=== PATIENT | male | born 1960 | race Caucasian/White ===

== ENCOUNTER 2021-02-15 16:21 | Observation (INO) | payer OTHER, SELFPAY ==
[2021-02-15 16:33] VITALS: BP 164/93; PULSE 80; RESP 16; TEMP 36.8; O2SAT 98; BMI 28.6
--- NOTE | 2021-02-15 16:53 | CTR_ITS ---
PROCEDURE INFORMATION: Exam: CT Head Without Contrast Exam date and time: 02/15/2021 4:53 PM Age: 60 years old Clinical indication: Pain; Headache; Additional info: Symptoms of acute stroke TECHNIQUE: Imaging protocol: Computed tomography of the head without contrast. Radiation optimization: All CT scans at this facility use at least one of these dose optimization techniques: automated exposure control; mA and/or kV adjustment per patient size (includes targeted exams where dose is matched to clinical indication); or iterative reconstruction. COMPARISON: No relevant prior studies available. RADIATION DOSE METRICS: Total DLP (mGy-cm): 924.27 FINDINGS: Brain: No hemorrhage. Ill-defined area of hypoattenuation in the left occipital lobe suggestive of an age-indeterminate infarct. Mild diffuse cerebral atrophy. No mass effect. Cerebral ventricles: No ventriculomegaly. Paranasal sinuses: Visualized sinuses are unremarkable. No fluid levels. Mastoid air cells: Visualized mastoid air cells are well aerated. Bones/joints: Unremarkable. No acute fracture. Soft tissues: Unremarkable. CT/CT head wo con* [id number] IMPRESSION: Ill-defined area of hypoattenuation in the left occipital lobe suggestive of an age-indeterminate infarct. Would recommend further evaluation with MRI. Radiation Dose CTDIVOL = (mGy): DLP = 924.27 (mGy-cm)
--- NOTE | 2021-02-15 16:53 | ECG_ITS ---
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 Measurements Intervals [place] Rate: 81 P: 47 LA: 180 QRS: 27 QRSD: 90 T: 34 QT: 344 QTc: 402 Interpretive Statements SINUS RHYTHM No previous ECG available for comparison Electronically Signed On 02-15-2021 23:23:41 CDT by Fred Vaca M.D. [id number]
--- NOTE | 2021-02-15 16:53 | XRR_ITS ---
PROCEDURE INFORMATION: Exam: XR Chest Exam date and time: 02/15/2021 4:53 PM Age: 60 years old Clinical indication: Other: Hypertension; Additional info: Elevated BP TECHNIQUE: Imaging protocol: XR of the chest. Views: 1 view. COMPARISON: No relevant prior studies available. FINDINGS: Lungs: Unremarkable. No consolidation. Pleural spaces: Unremarkable. No pleural effusion. No pneumothorax. Heart/Mediastinum: Unremarkable. No cardiomegaly. Bones/joints: Unremarkable. XR/XR chest 1V portable [id number] IMPRESSION: No acute findings. Radiation Dose CTDIVOL = (mGy): DLP = (mGy-cm)
[2021-02-15 17:01] LABS: Glucose Point of Care 129 mg/dL (70-110)
--- NOTE | 2021-02-15 17:06 | W.ED.NEUROSD ---
HPI - Neuro Symptoms/Deficit General: Chief Complaint: ER Hold Stated Complaint: htn:r side numbness/tingling Time Seen by Provider: 02/15/21 16:53 History of Present Illness: HPI Narrative: 60-year-old male presents emergency room with complaint of getting dizzy. He was lightheaded and dizzy felt like he was going to pass out and laid down on the ground for about 45 minutes. This was around 130. He did not ever lose consciousness. There was no chest pain. He states he had some left arm and leg numbness that is pretty much resolved by the time I seen the patient. He is not previously had episodes like this patient is not diabetic he has no history of heart disease or previous strokes. Onset (ago): hour(s) Last Observed Normal: 13:30 Timing confirmed by: spouse Location: speech, left arm and left leg Severity: mild Quality: weak and numb Relieving factors: time Exacerbating factors: none Context: sudden onset On Anticoagulants: No Associated symptoms: Deny chest pain, cough, diaphoresis, fevers/chills, headache(s), anorexia, malaise, nausea, seizures, short of breath, syncope, tingling, vertigo, vomiting or weakness Treatments Prior to Arrival: none Review of Systems Const: Denies: malaise or diaphoresis ENMT: Denies: throat pain, ear or mastoid pain, nasal discharge or nasal congestion Card: Denies: chest pain or syncope Resp: Denies: dyspnea, productive cough or non-productive cough GI: Denies: nausea or vomiting : Denies: flank pain, dysuria, urinary frequency or urinary urgency Skin/Breast: Denies: rash or pruritus Neuro: Denies: headache(s) or vertigo PFSH ED PFSH: Social History Smoking and tobacco status: current every day smoker (only 2 a day) NIH stroke score NIHSS: Level Of Consciousness - 1a: 0 Level Of Consciousness Questions - 1b: Both Correct Level Of Consciousness Commands - 1c: Both Correct Best Gaze - 2: Normal Visual Iriwn - 3: No Visual Loss Facial Palsy - 4: Normal Motor Arm Right - 5: No Drift Motor Arm Left - 5: No Drift Motor Leg Right - 6: No Drift Motor Leg Left - 6: No Drift Limb Ataxia - 7: Absent Sensory - 8: Normal Best Language - 9: No Aphasia Dysarthia - 10: Normal Extinction And Inattention - 11: 0 Score: Total Score: 0 Physical Exam Const: COMMON NORMALS: no acute distress GENERAL APPEARANCE: cooperative and comfortable ORIENTATION/CONSCIOUSNESS: Yes awake, Yes oriented to person, Yes oriented to place and Yes oriented to time HENMT: COMMON NORMALS: normocephalic, atraumatic and hearing grossly normal bilaterally HEAD & SCALP: normocephalic and atraumatic Neck/C-Spine: COMMON NORMALS: no JVD Resp: COMMON NORMALS: normal respiratory effort, No retractions, No use of accessory muscles and clear to auscultation bilaterally AUSCULTATION: clear to auscultation bilaterally Cardio: COMMON NORMALS: no JVD, regular rate, regular rhythm and No murmurs present (Cardio) RATE: regular rate RHYTHM: regular rhythm GI: COMMON NORMALS: Soft to palpation and No hepatosplenomegaly present AUSCULTATION: Yes normoactive bowel sounds PALPATION: Yes Soft to palpation, No Tenderness to palpation present (GI), No Guarding due to palpation present (GI) and Yes No hepatosplenomegaly present Extremity: COMMON NORMALS: normal to inspection, capillary refill normal, no clubbing, cyanosis or edema, no calf tenderness and no pedal edema Neuro: SENSORIUM/ORIENTATION: Yes oriented to person, Yes oriented to place and Yes oriented to time Skin: COMMON NORMALS: no rashes or lesions noted GENERAL SKIN EXAM: no rashes or lesions noted Course Vital Signs: Vital signs: Vital Signs Temperature 98.9 F 02/16/21 18:03 Pulse Rate 76 02/16/21 18:03 Respiratory Rate 20 H 02/16/21 18:03 Blood Pressure 148/92 02/16/21 18:03 Pulse Oximetry 98 02/16/21 18:03 MDM - Neuro Symptoms/Deficit MDM Narrative: Medical decision making narrative: With the patient has had a stroke. He is outside the window for TPA. Has been having various episodes. Discussed with hospitalist with Dr. Walden will admit for risk factor evaluation further work-up. Lab Data: Labs: Lab Results 02/15/21 02/15/21 02/15/21 16:51 16:57 16:57 WBC 12.3 10^3/uL H 10 ^3/uL (4.0-10.0) RBC 5.67 10^6/uL H 10 ^6/uL (4.1-5.3) Hgb 17.0 g/dL H g/dL (11.7-16.6) Hct 52.8 % H % (42.0-52.0) MCV 93.1 fl fl (80-94) MCH 30.0 pg pg (28.0-34.0) MCHC 32.2 g/dL g/dL (30.0-36.0) RDW 22.2 % H % (12.1-15.1) Plt Count 214 10^3/cmm 10^3 /cmm (130-400) MPV 10.5 fL H fL (7.4-10.4) Neut % (Auto) 74.0 % % Lymph % (Auto) 19.0 % % [place] % (Auto) 4.6 % % Eos % (Auto) 1.1 % % Baso % (Auto) 0.9 % % Neut # (Auto) 9.14 10^3/uL H 10 ^3/uL (1.8-7.7) Lymph # (Auto) 2.3 10^3/uL 10^3/ uL (0.8-4.8) [place] # (Auto) 0.6 10^3/uL 10^3/ uL (0.2-0.9) Eos # (Auto) 0.1 10^3/uL 10^3/ uL (0.0-0.8) Baso # (Auto) 0.1 10^3/uL 10^3/ uL (0.0-0.1) Nucleated RBC % (a uto) 0 % % Nucleated RBCs # 0.0 /100WBC /100W BC PT Cancelled INR Cancelled APTT Cancelled Sodium Potassium Chloride Carbon Dioxide Anion Gap BUN Creatinine GFR Calculation Glucose POC Glucose 129 mg/dL H mg/dL (70-110) Calculated Osmolal ity Calcium Total Bilirubin AST ALT Alkaline Phosphata se Total Protein Albumin Globulin Urine Color Urine Appearance Urine pH Ur Specific Gravit y Urine Protein Urine Glucose (UA) Urine Ketones Urine Blood Urine Nitrate Urine Bilirubin Urine Urobilinogen Ur Leukocyte Shantal ase Urine Opiates Scre en Ur Barbiturates Sc reen Ur Phencyclidine S crn Ur Amphetamines Sc reen U Benzodiazepines Scrn Urine Cocaine Scre en U Marijuana (THC) Screen 02/15/21 02/15/21 02/15/21 16:57 17:25 17:25 WBC RBC Hgb Hct MCV MCH MCHC RDW Plt Count MPV Neut % (Auto) Lymph % (Auto) [place] % (Auto) Eos % (Auto) Baso % (Auto) Neut # (Auto) Lymph # (Auto) [place] # (Auto) Eos # (Auto) Baso # (Auto) Nucleated RBC % (a uto) Nucleated RBCs # PT INR APTT Sodium Cancelled Potassium Cancelled Chloride Cancelled Carbon Dioxide Cancelled Anion Gap Cancelled BUN Cancelled Creatinine Cancelled GFR Calculation Cancelled Glucose Cancelled POC Glucose Calculated Osmolal ity Cancelled Calcium Cancelled Total Bilirubin Cancelled AST Cancelled ALT Cancelled Alkaline Phosphata se Cancelled Total Protein Cancelled Albumin Cancelled Globulin Cancelled Urine Color Straw (Yellow) Urine Appearance Clear (CLEAR) Urine pH 5 (5-7) Ur Specific Gravit y 1.010 (1.005-1.030) Urine Protein Neg (Negative) Urine Glucose (UA) Trace H (Normal) Urine Ketones 1+ H (Negative) Urine Blood Neg (Negative) Urine Nitrate Negative (Negative) Urine Bilirubin Neg (Negative) Urine Urobilinogen Norm mg/dL mg/dL (Negative) Ur Leukocyte Shantal ase Negative (Negative) Urine Opiates Scre en Negative ng/mL ng /mL (Negative) Ur Barbiturates Sc reen Negative ng/mL ng /mL (Negative) Ur Phencyclidine S crn Negative ng/mL ng /mL (Negative) Ur Amphetamines Sc reen Negative ng/mL ng /mL (Negative) U Benzodiazepines Scrn Negative ng/mL ng /mL (Negative) Urine Cocaine Scre en Negative ng/mL ng /mL (Negative) U Marijuana (THC) Screen Negative ng/mL ng /mL (Negative) Discharge Plan Discharge Patient Disposition: Admitted As Inpatient Admit Provider: Josefina Mendez Clinical Impression: 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
[2021-02-15 17:08] LABS: Basophils # 0.1 10^3/uL (0.0-0.1); Basophils % 0.9 %; Eosinophils # 0.1 10^3/uL (0.0-0.8); Eosinophils % 1.1 %; Hematocrit 52.8 % (42.0-52.0); Lymphocytes # 2.3 10^3/uL (0.8-4.8); Mean Corpuscular HGB Conc 32.2 g/dL (30.0-36.0); Mean Corpuscular Volume 93.1 fl (80-94); Mean Platelet Volume 10.5 fL (7.4-10.4); Monocytes # 0.6 10^3/uL (0.2-0.9); Monocytes % 4.6 %; Neutrophils # 9.14 10^3/uL (1.8-7.7); Nucleated Red Blood Cells % 0 %; Platelet Count 214 10^3/cmm (130-400); Red Blood Count 5.67 10^6/uL (4.1-5.3); Red Cell Distribution Width 22.2 % (12.1-15.1); White Blood Count 12.3 10^3/uL (4.0-10.0)
[2021-02-15 17:37] LABS: Add Urine Microscopic? NO; Charge for UA Resulting for Rev
[2021-02-15 17:40] LABS: Bilirubin Urine Neg (Negative); Blood Urine Neg (Negative); Glucose Urine UA Trace (Normal); Ketones Urine 1+ (Negative); Leukocyte Esterase Urine Negative (Negative); Nitrate Urine Negative (Negative); Protein Urine Neg (Negative); Urine Appearance Clear (CLEAR); Urine Color Straw (Yellow); Urobilinogen Urine Norm (Negative); pH Urine 5 (5-7)
[2021-02-15 17:46] VITALS: BP 129/83; PULSE 89; RESP 18; O2SAT 95
--- NOTE | 2021-02-15 17:46 | PC.PHAR ---
pt states he takes care of his own medications-pt states he takes 99mg of otc kcl pt states he takes 5 tabs five times a day-pt states he takes some kind of diabetic pill once a day and a testosterone injection once a week called [facility] [phone] they are closed to verify what medication name and mg is-pt states the metoprolol tartrate 50mg bid was dced ext med history shows last filled on 01/25/21 30d/s-
[2021-02-15 18:03] LABS: Amphetamines Screen Urine Negative (Negative); Barbiturates Screen Urine Negative (Negative); Benzodiazepines Screen Urine Negative (Negative); Cocaine Screen Urine Negative (Negative); Opiate Screen Urine Negative (Negative); PCP Screen Urine Negative (Negative); THC Screen Urine Negative (Negative)
--- NOTE | 2021-02-15 19:06 | PM.HP ---
Providers/Chief Complaint Chief Complaint: htn:r side numbness/tingling History of Present Illness Nithin Shin is a 60 year old male with past medical history of hypertension and diabetes mellitus presented to the ER today by his for complaint of right-sided weakness. He stated he was lightheaded dizzy at first and he had to lay down for about 45 minutes on his front porch. He called his when she got there patient was foggy and was having right-sided numbness. He did not lose his speech. He was disoriented and just felt something did not feel right. He also said that he has had these type of episodes in the recent few weeks about 2 or 3 times and today was the third time. He denies any other symptoms. Denies any chest pain, shortness of breath, abdominal pain but does endorse a little bit of heartburn at times. He sees eye doctor at [facility] in [facility]. He has been placed on lisinopril 20 mg daily and amlodipine 10 mg daily for blood pressure. Him and his state that recently blood pressure has been an issue but at his last visit he was told that it is better but not exactly where it needs to be. He has not had a stroke before. ED course: Blood pressure on arrival 164/93, respirate 16, pulse rate 80, temperature 98.2, pulse ox 98%. Patient's NIH was 0 when seen by ER physician. He was outside the window for TPA therefore it was not given. CT head was performed which showed an indeterminate age infarct in the left occipital lobe MRI recommended for further work-up. Review of Systems General: Reports: 10 or more systems reviewed and unremarkable except in HPI and below Medications/Allergies Home Medications Medication Instructions Recorded Confirmed Last Taken Type Diabetic Pill 1 tab PO DAILY 02/15/21 02/15/21 Unknown History Testosterone Injection 1 ml INJECTION Q7D 02/15/21 02/15/21 Unknown History Vitamin B-1 1 tab PO DAILY 02/15/21 02/15/21 Unknown History amlodipine 10 mg PO BEDTIME 02/15/21 02/15/21 02/14/21 History anastrozole 1 mg PO Q7D 02/15/21 02/15/21 02/11/21 History aspirin [Aspir-81] 324 mg PO ONCE 02/15/21 02/15/21 02/15/21 14:30 History ibuprofen 600 mg PO Q4H PRN 02/15/21 02/15/21 02/15/21 History lisinopril 20 mg PO DAILY 02/15/21 02/15/21 Unknown History magnesium 1 tab PO DAILY 02/15/21 02/15/21 Unknown History potassium gluconate 495 mg PO .FIVE TIMES A DAY 02/15/21 02/15/21 Unknown History sildenafil (pulm.hypertension) 100 mg PO PRN PRN 02/15/21 02/15/21 Unknown History vitamin B complex 1 tab PO DAILY 02/15/21 02/15/21 Unknown History Allergies Allergy/AdvReac Type Severity Reaction Status Date / Time No Known Allergies Allergy Verified 02/15/21 16:42 Vitals/I&O/Wt Last Vital Signs Temp 98.2 F 02/15/21 16:33 Pulse 89 02/15/21 17:46 Resp 18 02/15/21 17:46 BP 129/83 02/15/21 17:46 Pulse Ox 95 02/15/21 17:46 Weight last 48 hrs Weight 98.43 kg Physical Exam Narrative: EXAM NARRATIVE: General: Alert oriented x3, patient seen laying in bed with present at bedside. HEENT: Normocephalic, atraumatic, EOMI, breathing room air Cardio: Regular rate rhythm, normal S1-S2, no murmurs rubs gallops, Respiratory: Good bilateral air entry, no wheezes no rhonchi appreciated. Very mild crackles at the right base. GI: Abdomen soft, nontender, nondistended, bowel sounds + Behavior: Appropriate and cooperative Extremities: no edema, no cyanosis Neuro: Cranial nerve II to XII intact, right upper quadrantanopia present, no word finding difficulty, no slurred speech, speech clear, strength 5 out of 5 upper and lower extremities, sensation intact upper and lower extremities. Otherwise unremarkable neuro exam except the right upper quadrantanopsia. Data : 02/15/21 16:57 02/15/21 16:57 A&P Assessment and plan (1) Stroke: Status: Acute (2) HTN (hypertension): Status: Acute (3) Diabetes: Status: Acute (4) Nicotine dependence: Status: Acute Additional A&P Information #Left occipital lobe stroke #Hypertension -Patient symptoms have resolved by the time he was seen by ER physician today. He was outside of window for TPA and therefore not given. He has been having these episodes for the last few weeks. Case was discussed with Dr. Walden who recommended a CT angio head and neck along with echo and an MRI brain with contrast. She also recommended to start patient on aspirin Plavix and atorvastatin. Will order MRI brain with contrast We will do neuro checks every 4 hours Placed on cardiac telemetry Check lipid profile, hemoglobin A1c As per recommendations from Dr. Walden will start him on lisinopril 10 mg daily, amlodipine 5 mg daily (half of his home doses.) We will do swallow evaluation before initiating a diet #Diabetes mellitus -Placed on insulin sliding scale Fluids: Not indicated Electrolyte: Replete as needed Nutrition: N.p.o. for now until swallow evaluation then will start a cardiac diet Activity: As tolerated DVT prophylaxis: Lovenox. Attestations Medical Necessity Statement*: Anticipate discharge in less than 48 hours. Time Spent in Patient Care: Greater than 35 minutes Coding Level of Care Code Acute [place] Operator for Hemal Cole Diagnoses Stroke I63.9 HTN (hypertension) I10 Diabetes E11.9 Nicotine dependence F17.200
[2021-02-15 19:43] LABS: INR 0.95 (0.8-1.2)
[2021-02-15 19:44] LABS: Partial Thromboplastin Time 27.2 SECONDS (23.9-36.7)
[2021-02-15 19:51] LABS: Alanine Aminotransferase 16 U/L (0-41); Albumin Level 4.7 g/dL (3.5-5.2); Alkaline Phosphatase 59 IU/L (40-130); Anion Gap 19.3 (5-19); Aspartate Amino Transferase 17 U/L (0-40); Blood Urea Nitrogen 14 mg/dL (6-20); Calcium 9.5 mg/dL (8.5-10.5); Carbon Dioxide 18 mmol/L (22-29); Chloride 105 mmol/L (98-107); Globulin 2.8 g/dL (1.3-4.6); Glomerular Filtration Rate 68.8 mL/min (90-130); Glucose 129 mg/dL (65-115); Osmolality Calculated 288 mOsm/kg (285-295); Potassium 4.3 mmol/L (3.5-5.1); Sodium 138 mmol/L (136-145); Total Bilirubin 0.6 mg/dL (0.15-1.2); Total Protein 7.5 g/dL (6.6-8.7)
[2021-02-15] MEDS: enoxaparin 40 mg/0.4 mL Syringe SUBCUT (21:31)
--- NOTE | 2021-02-15 21:39 | CTR_ITS ---
PROCEDURE INFORMATION: Exam: CT Angiography Head With Contrast, Arteriography Exam date and time: 02/15/2021 9:39 PM Age: 60 years old Clinical indication: Numbness and visual disturbance; Additional info: CVA TECHNIQUE: Imaging protocol: Computed tomography angiography of the head with contrast. Exam focused on the arteries. 3D rendering (Not supervised by radiologist): MIP and/or 3D reconstructed images were created by the technologist. Radiation optimization: All CT scans at this facility use at least one of these dose optimization techniques: automated exposure control; mA and/or kV adjustment per patient size (includes targeted exams where dose is matched to clinical indication); or iterative reconstruction. Contrast material: OMNI 350; Contrast volume: 95 ml; Contrast route: INTRAVENOUS (IV); COMPARISON: CT head wo con* [id number] 02/15/2021 5:00 PM RADIATION DOSE METRICS: Total DLP (mGy-cm): 2588.85 FINDINGS: ANTERIOR CIRCULATION: Right internal carotid artery: There is mild atherosclerotic disease in the cavernous portion of the right internal carotid artery without significant stenosis. Right middle cerebral artery: Unremarkable. No occlusion or significant stenosis. No aneurysm. Right anterior cerebral artery: Unremarkable. No occlusion or significant stenosis. No aneurysm. Left internal carotid artery: There is mild atherosclerotic disease in the cavernous portion of the left internal carotid artery without significant stenosis. Left middle cerebral artery: Unremarkable. No occlusion or significant stenosis. No aneurysm. Left anterior cerebral artery: Unremarkable. No occlusion or significant stenosis. No aneurysm. POSTERIOR CIRCULATION: Right vertebral artery: Unremarkable. No occlusion or significant stenosis. No aneurysm. Left vertebral artery: Unremarkable. No occlusion or significant stenosis. No aneurysm. Basilar artery: Unremarkable. No occlusion or significant stenosis. No aneurysm. Right posterior cerebral artery: origin of the right posterior cerebral artery. No occlusion or aneurysm. Left posterior cerebral artery: Unremarkable. No occlusion or significant stenosis. No aneurysm. Veins: Dural venous sinuses are patent. Brain: No definite mass, mass effect, or midline shift. Cerebral ventricles: No ventriculomegaly. Bones/joints: Unremarkable. No acute fracture. Soft tissues: Unremarkable. IMPRESSION: No arterial stenosis, occlusion or aneurysm. PROCEDURE INFORMATION: Exam: CT Angiography Neck With Contrast Exam date and time: 02/15/2021 9:39 PM Age: 60 years old Clinical indication: Numbness and visual disturbance; Additional info: CVA TECHNIQUE: Imaging protocol: Computed tomography angiography of the neck with contrast. 3D rendering (Not supervised by radiologist): MIP and/or 3D reconstructed images were created by the technologist. Radiation optimization: All CT scans at this facility use at least one of these dose optimization techniques: automated exposure control; mA and/or kV adjustment per patient size (includes targeted exams where dose is matched to clinical indication); or iterative reconstruction. Contrast material: OMNI 350; Contrast volume: 95 ml; Contrast route: INTRAVENOUS (IV); COMPARISON: CT head wo con* [id number] 02/15/2021 5:00 PM RADIATION DOSE METRICS: Total DLP (mGy-cm): 2588.85 FINDINGS: Right common carotid artery: No stenosis. No dissection or occlusion. Right internal carotid artery: There is mild atherosclerotic disease at the origin of the right internal carotid artery with less than 50% stenosis. Right external carotid artery: No occlusion or stenosis of the origin. Left common carotid artery: No stenosis. No dissection or occlusion. Left internal carotid artery: There is mild atherosclerotic disease at the origin of the left internal carotid artery with less than 50% stenosis. Left external carotid artery: There is 60 % stenosis at the origin of the left external carotid artery. Right vertebral artery: No stenosis. No dissection or occlusion. Left vertebral artery: No stenosis. No dissection or occlusion. Soft tissues: Soft tissues in the neck and thoracic inlet are unremarkable. Bones/joints: There is moderate degenerative disc disease in the cervical spine. Lungs: Lung apices are clear. CT/CT angio headneck* [id number] IMPRESSION: 1. No hemodynamically significant stenosis in the internal carotid or vertebral arteries. 2. 60% stenosis at the origin of the left external carotid artery. REFERENCES: NASCET CRITERIA. The degree of internal carotid artery stenosis is based on NASCET criteria. Normal is no stenosis. Mild is less than 50% stenosis. Moderate is 50-69% stenosis. Severe is 70% to 99% stenosis. Total occlusion is no detectable patent lumen. Radiation Dose CTDIVOL = (mGy): DLP = 2588.85~2588.85 (mGy-cm)
[2021-02-15] MEDS: iohexol 350 mg/mL 100 mL Btl IV (21:46)
[2021-02-16 03:00] VITALS: BP 98/74; PULSE 70; RESP 16; O2SAT 96
[2021-02-16 05:02] VITALS: BP 120/61; PULSE 65; RESP 16; O2SAT 97
[2021-02-16 05:09] LABS: Basophils # 0.1 10^3/uL (0.0-0.1); Basophils % 1.3 %; Eosinophils # 0.3 10^3/uL (0.0-0.8); Eosinophils % 3.9 %; Hematocrit 48.4 % (42.0-52.0); Hemoglobin 16.3 g/dL (11.7-16.6); Lymphocytes # 2.7 10^3/uL (0.8-4.8); Lymphocytes % 34.4 %; Mean Corpuscular HGB Conc 33.7 g/dL (30.0-36.0); Mean Corpuscular Hemoglobin 29.9 pg (28.0-34.0); Mean Corpuscular Volume 88.8 fl (80-94); Mean Platelet Volume 10.9 fL (7.4-10.4); Monocytes # 0.6 10^3/uL (0.2-0.9); Neutrophils # 4.02 10^3/uL (1.8-7.7); Neutrophils % 52.1 %; Nucleated Red Blood Cells % 0 %; Platelet Count 204 10^3/cmm (130-400); Red Blood Count 5.45 10^6/uL (4.1-5.3); Red Cell Distribution Width 13.4 % (12.1-15.1); White Blood Count 7.7 10^3/uL (4.0-10.0)
[2021-02-16 05:35] LABS: Cholesterol 143 mg/dL (0-200); HDL Cholesterol 42 mg/dL (60-100); LDL Cholesterol Calculated 76 mg/dL (50-129); LDL HDL Ratio 1.81 RATIO (0.00-3.22); Triglycerides 127 mg/dL (0-150)
[2021-02-16 05:45] LABS: Alanine Aminotransferase 12 U/L (0-41); Albumin Level 4.1 g/dL (3.5-5.2); Alkaline Phosphatase 50 IU/L (40-130); Anion Gap 15.5 (5-19); Aspartate Amino Transferase 13 U/L (0-40); Blood Urea Nitrogen 17 mg/dL (6-20); Carbon Dioxide 22 mmol/L (22-29); Chloride 106 mmol/L (98-107); Globulin 2.5 g/dL (1.3-4.6); Glomerular Filtration Rate 68.8 mL/min (90-130); Glucose 146 mg/dL (65-115); Magnesium 2.2 mg/dL (1.7-2.3); Osmolality Calculated 292 mOsm/kg (285-295); Potassium 4.5 mmol/L (3.5-5.1); Sodium 139 mmol/L (136-145); Thyroid Stimulating Hormone 0.86 uIU/mL (0.27-4.20); Total Bilirubin 0.4 mg/dL (0.15-1.2); Total Protein 6.6 g/dL (6.6-8.7)
--- NOTE | 2021-02-16 06:00 | USCV_ITS ---
Nithin Shin Age: 60 Gender: M : 1960 Exam Date: 02/16/2021 08:38 Ordering Phys: Michael Humphrey DO Technologist: Radha Samuels [place]am [place] [facility] [place]: CVA BP: / HR: 78 Rhythm: Sinus Technical Quality: Good MEASUREMENTS (Male / Female) Normal Values 2D ECHO LV Diastolic Diameter PLAX 4.0 cm 4.2 - 5.9 / 3.9 - 5.3 cm LV Systolic Diameter PLAX 2.2 cm IVS Diastolic Thickness 1.5 cm 0.6 - 1.0 / 0.6 - 0.9 cm IVS Systolic Thickness 1.9 cm LVPW Diastolic Thickness 1.3 cm 0.6 - 1.0 / 0.6 - 0.9 cm LVPW Systolic Thickness 1.9 cm LVOT Diameter 2.1 cm LV Ejection Fraction 2D Teich 76.3 % LV Ejection Fraction MOD 2C 73.6 % LV Ejection Fraction 2C AL 75.3 % LA Diameter 3.2 cm LA Width 3.0 cm LA Height 5.5 cm RA Width 2.8 cm RA Height 5.5 cm Aorta at Sinotubular Diameter 3.2 cm DOPPLER AV Peak Velocity 120.0 cm/s LVOT Peak Velocity 89.0 cm/s AV Area Cont Eq vti 2.9 cm squared AV Area Cont Eq pk 2.7 cm squared MV Peak Velocity 82.0 cm/s MV Area PHT 3.9 cm squared Mitral E to A Ratio 0.9 MV E' Velocity 35.5 cm/s Mitral E to MV E' Ratio 11.3 Mitral E to LV E' Lateral Ratio 8.8 Mitral E to LV E' Septal Ratio 15.6 TR Peak Velocity 47.0 cm/s TR Peak Gradient 0.9 mmHg Right Atrial Pressure 3.0 mmHg Pulmonary Artery Systolic Pressu 3.9 mmHg PV Peak Velocity 68.0 cm/s RV Acceleration Time 0.1 s RV Ejection Time 0.3 s RV AcT/ET 0.5 FINDINGS Left Ventricle Normal left ventricular size and systolic function, EF 74 %. No regional wall motion abnormalities. Mild left ventricular hypertrophy. Grade I/IV diastolic dysfunction (abnormal relaxation filling pattern), normal to mildly elevated filling pressures. Right Ventricle The right ventricle is normal in size and function. Right Atrium The right atrium is normal in size. Left Atrium The left atrium is normal in size. Mitral Valve Thickened mitral valve. Chordal VIOLETA is present Aortic Valve Structurally normal aortic valve without significant sclerosis or stenosis. There is no aortic regurgitation. Tricuspid Valve Trace tricuspid valve regurgitation. Pulmonic Valve Structurally normal pulmonic valve without significant stenosis. There is no pulmonic regurgitation. Pericardium Normal pericardium without effusion. Aorta Normal ascending aorta dimension. CONCLUSIONS Normal left ventricular size and systolic function, EF 74 %. No regional wall motion abnormalities. Mild left ventricular hypertrophy. Grade I/IV diastolic dysfunction (abnormal relaxation filling pattern), normal to mildly elevated filling pressures. Thickened mitral valve. Systolic a nterior motion of the chordae is present. Trace tricuspid valve regurgitation. There is no pericardial effusion. There are no intracardiac masses. No previous study is available for comparison. Dr Gabbie Partida MD [facility] (Electronically Signed) Final Date: 16 February 2021 14:27 S
--- NOTE | 2021-02-16 06:00 | USCV_ITS ---
Nithin Shin Age: 60 Gender: M : 1960 Exam Date: 02/16/2021 08:13 Ordering Phys: Michael Humphrey DO Technologist: Radha Samuels Exam Location: [facility] [place] Indication: CVA Risk Factors: diabetic Previous Vascular Surgery: none Right Brachial BP: / Left Brachial BP: / Right Left Velocity (cm/s) Spectral Plaque Velocity (cm/s) Spectral Plaque Syst/Diast Broadening Syst/Diast Broadening 72.80/ 13.20 Prox CCA 59.80 / 14.80 79.40/ 14.30 Mid CCA 55.20 / 13.20 87.10/ 23.20 Distal CCA 50.50 / 10.90 Hetro 44.00/ 14.50 Hetro Prox ICA 46.10 / 17.10 Hetro 50.50/ 17.90 Mid ICA 76.90 / 21.40 55.70/ 18.60 Distal ICA 71.90 / 27.80 167.30 ECA 356.00 0.64 ICA/CCA 1.29 Antegrade Vertebral Antegrade 24.10/ 6.60 cm/s 32.20/ 13.10 cm/s Tri Subclavian Tri 217.7 84.10 0 FINDINGS Comparison: none available. No significant elevation of systolic or diastolic velocities. Diffuse bilateral scattered calcified plaque and intimal thickening throughout the common carotid arteries and extending through the bifurcation. Antegrade vertebral arteries. CONCLUSIONS Bilateral ICA stenosis less than 50%. Mild atherosclerosis. Dr. Roberta Alejandro DO (Electronically Signed) Final Date: 16 February 2021 09:34 S
[2021-02-16 06:06] LABS: INR 0.98 (0.8-1.2)
[2021-02-16 06:23] LABS: Estmated Average Glucose 171; Hemoglobin A1C 7.6 % (4.0-6.0)
--- NOTE | 2021-02-16 07:14 | PC.NURSE ---
Recieved report from RN, rounded on pt. Pt returning from restroom, assisted with reconnecting pt to monitor. Pt states he is comfortable and does not need anything more a this time.
--- NOTE | 2021-02-16 08:00 | MR_ITS ---
WS: [id number] MRI BRAIN WITHOUT CONTRAST HISTORY: occipital lobe stroke COMPARISON: CT head 02/15/2021 TECHNIQUE: Diffusion imaging, multiplanar T1, T2 and FLAIR imaging obtained. Acute diffusion-weighted abnormality involving moderate portion of the LEFT occipital lobe. No associ ated hemorrhage. No additional acute infarcts. There are additional scattered T2 and FLAIR signal hyperintensities within the white matter. No prior infarct. Ventricles and extra-axial spaces are normal. No inferior displacement of cerebellar tonsils. The sella turcica and pituitary gland are unremarkabl e. Dural venous sinuses and [place] demonstrate no abnormality on this unenhanced studies. Paranasal sinuses: Clear. Mastoid air cells: Normal. Calvarium and scalp: Intact. MR/MR head wo con* [id number] IMPRESSION: 1. Acute, nonhemorrhagic LEFT occipital lobe infarct. 2. Mild chronic microvascular ischemic changes.
--- NOTE | 2021-02-16 08:11 | PC.NURSE ---
US tech in pts room completing ultra sound.
--- NOTE | 2021-02-16 08:30 | PC.NURSE ---
This RN called floor to give report, Blake Campoverde. Staff advised Sandro is busy with a pt and will call this RN back to get report when available.
--- NOTE | 2021-02-16 08:44 | PC.PHAR ---
DARNELL CORTES OF [facility] [phone] THIS AM TO VERIFY DIABETIC MEDICATION ENTERED DIABETIC PILL 1 TAB DAILY LAST NIGHT-[facility] STATES THEY FILL LINAGLIPTIN-METFORMIN ER 2.5-1,000MG 2 TABS DAILY PT NOW STATES THATS THE NAME OF THE MEDICATION HE TAKES AND TAKES 2 TABS DAILY-PT ALSO STATES THE TESTOSTERONE INJECTION HE GETS IS THE TESTOSTERONE CYPIONATE 100MG/ML 1ML EVERY 7 DAYS
[2021-02-16] MEDS: atorvastatin 40 mg Tablet 80 MG PO (09:01)
[2021-02-16] MEDS: amlodipine 5 mg Tablet PO (09:01)
[2021-02-16] MEDS: clopidogrel 75 mg Tablet PO (09:02)
[2021-02-16] MEDS: lisinopril 10 mg Tablet PO (09:02)
[2021-02-16] MEDS: aspirin 81 mg EC Tablet PO (09:05)
--- NOTE | 2021-02-16 09:07 | PC.NURSE ---
Nirali RN returning call for report, advised pt is good to come to floor, room is ready.
[2021-02-16 09:45] VITALS: BMI 28.6
--- NOTE | 2021-02-16 12:41 | P.PN_ITS ---
Subjective Subjective: Interval history: Seen and examined this morning. Patient still complains of a little bit of numbness tingling feeling in his right hand but otherwise feels well. He walked from the emergency room up to his room. He does not notice a strength deficit. present at bedside. He is scheduled to go for the MRI today. Vitals/I&O/Wt Last Vital Signs Temp 98.2 F 02/15/21 16:33 Pulse 65 02/16/21 05:02 Resp 16 02/16/21 05:02 BP 120/61 02/16/21 05:02 Pulse Ox 97 02/16/21 05:02 Weight last 48 hrs Weight 98.43 kg Physical Exam Narrative: EXAM NARRATIVE: General: Alert oriented x3, patient seen laying in bed with present at bedside. HEENT: Normocephalic, atraumatic, EOMI, breathing room air Cardio: Regular rate rhythm, normal S1-S2, no murmurs rubs gallops, Respiratory: Good bilateral air entry, no wheezes no rhonchi appreciated. Very mild crackles at the right base. GI: Abdomen soft, nontender, nondistended, bowel sounds + Behavior: Appropriate and cooperative Extremities: no edema, no cyanosis Neuro: Cranial nerve II to XII intact, right upper quadrantanopia no longer present, no word finding difficulty, no slurred speech, speech clear, strength 5 out of 5 upper and lower extremities, sensation intact upper and lower extremities. Otherwise unremarkable neuro exam except the right upper quadrantanopsia. Data : 02/16/21 04:45 02/16/21 04:45 A&P Assessment and plan (1) Stroke: Status: Acute (2) HTN (hypertension): Status: Acute (3) Diabetes: Status: Acute (4) Nicotine dependence: Status: Acute Additional A&P Information #Left occipital lobe stroke #Hypertension -Patient symptoms have resolved by the time he was seen by ER physician today. He was outside of window for TPA and therefore not given. He has been having these episodes for the last few weeks. Case was discussed with Dr. Walden who recommended a CT angio head and neck along with echo and an MRI brain with contrast. She also recommended to start patient on aspirin Plavix and atorvastatin. Will order MRI brain with contrast We will do neuro checks every 4 hours Placed on cardiac telemetry Lipid profile normal, hemoglobin A1c 7.9. As per recommendations from Dr. Walden will start him on lisinopril 10 mg daily, amlodipine 5 mg daily (half of his home doses.) Blood pressure was low overnight. I will discontinue amlodipine 5 mg at this point. We will only continue with lisinopril 10 daily He passed well evaluation. We will start him on a diet. Continue aspirin, Plavix, atorvastatin Scheduled for MRI today. Patient's and patient is concerned that he continues to have a little bit of tingling in his right side and do not feel comfortable going home today. I will discuss this issue with Dr. Walden before making further decisions. His MRI is pending anyway. Echocardiogram also pending. #Diabetes mellitus -Placed on insulin sliding scale Fluids: Not indicated Electrolyte: Replete as needed Nutrition: N.p.o. for now until swallow evaluation then will start a cardiac diet Activity: As tolerated DVT prophylaxis: Lovenox. Attestations Medical Necessity Statement*: Possible discharge in the evening versus tomorrow. Awaiting work-up results. 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
--- NOTE | 2021-02-16 12:42 | XR_ITS ---
WS: [id number] Exam: XR chest 1V portable [id number] Date/Time of Exam: 02/16/2021 12:44 PM Reason For Exam: crackles at right base Comparison 02/15/2021. Findings: The lungs are clear and fully expanded. Costophrenic angles are sharp. No infiltrates. Bronchovascula r relief appears normal. Cardiac silhouette is unremarkable. Bony elements are intact. XR/XR chest 1V portable [id number] IMPRESSION: Unremarkable chest radiograph.
[2021-02-16 14:44] LABS: Glucose Point of Care 178 mg/dL (70-110)
--- NOTE | 2021-02-16 15:27 | PC.OT ---
OT evaluation received. OT screen completed. Patient demonstrates no deficits in ADLs, ROM, and muscle strength at this time.
[2021-02-16 16:00] VITALS: BP 148/92; PULSE 76; RESP 20; TEMP 37.2; O2SAT 98
--- NOTE | 2021-02-16 16:26 | PM.DCS ---
Discharge Providers Date of Admission: 02/15/21 18:04 Date of Discharge: February 16, 2021 Attending Provider at Admission: Josefina Mendez MD Attending Provider at Discharge: Josefina Mendez MD Diagnoses at Discharge Discharge Diagnosis (1) Stroke: Status: Acute (2) HTN (hypertension): Status: Acute (3) Diabetes: Status: Acute (4) Nicotine dependence: Status: Acute Reason for Visit Reason for Visit: htn:r side numbness/tingling Hospital Course Hospital Course Nithin Shin is a 60 year old male with past medical history of hypertension and diabetes mellitus presented to the ER today by his for complaint of right-sided weakness. He stated he was lightheaded dizzy at first and he had to lay down for about 45 minutes on his front porch. He called his when she got there patient was foggy and was having right-sided numbness. He did not lose his speech. He was disoriented and just felt something did not feel right. He also said that he has had these type of episodes in the recent few weeks about 2 or 3 times and today was the third time. He denies any other symptoms. Denies any chest pain, shortness of breath, abdominal pain but does endorse a little bit of heartburn at times. He sees eye doctor at [facility] in [facility]. He has been placed on lisinopril 20 mg daily and amlodipine 10 mg daily for blood pressure. Him and his state that recently blood pressure has been an issue but at his last visit he was told that it is better but not exactly where it needs to be. He has not had a stroke before. ED course: Blood pressure on arrival 164/93, respirate 16, pulse rate 80, temperature 98.2, pulse ox 98%. Patient's NIH was 0 when seen by ER physician. He was outside the window for TPA therefore it was not given. CT head was performed which showed an indeterminate age infarct in the left occipital lobe MRI recommended for further work-up. Course Patient admitted for left occipital stroke. MRI brain was done which showed acute nonhemorhagic left occipital lobe infarct. Patient did have right quadrantonopia at admission which resolved by next day. .Echo showed normal EF with grade 1 diastolic dysfunction. Patient was dc to follow up with Dr. Walden as outpatient (neurology) Physical Exam Narrative: EXAM NARRATIVE: General: Alert oriented x3, patient seen laying in bed with present at bedside. HEENT: Normocephalic, atraumatic, EOMI, breathing room air Cardio: Regular rate rhythm, normal S1-S2, no murmurs rubs gallops, Respiratory: Good bilateral air entry, no wheezes no rhonchi appreciated. GI: Abdomen soft, nontender, nondistended, bowel sounds + Behavior: Appropriate and cooperative Extremities: no edema, no cyanosis Neuro: Cranial nerve II to XII intact, right upper quadrantanopia no longer present, no word finding difficulty, no slurred speech, speech clear, strength 5 out of 5 upper and lower extremities, sensation intact upper and lower extremities. Otherwise unremarkable neuro exam except the right upper quadrantanopsia. Discharge Data Data Completed and Pending: Completed Studies During Hospitalization Category Date Time Status CT angio headneck * [id number] Rout ine Cat Scan 02/15/21 21:[address] head wo con* [id number] Stat Cat Scan 02/15/21 16:53 Completed XR chest 1V roseann ble [id number] Routine Exams 02/16/21 12:42 Completed XR chest 1V roseann ble [id number] Stat Exams 02/15/21 16:53 Completed MR head wo con* [id number] Urgent MRI 02/16/21 08:00 Completed CV carotid duplex BI* [id number] Routine Ultrasound 02/16/21 06:00 Completed CV. echo complete * [id number] Routine Ultrasound 02/16/21 06:00 Completed Pending at discharge Category Date Time Status Basic Metabolic P stuart AM LABS Lab 02/17/21 04:00 Ordered Complete Blood Co unt w/Auto AM LABS Lab 02/17/21 04:00 Ordered Labs from last 24 hours 02/16/21 02/16/21 02/16/21 14:24 04:45 04:45 WBC RBC Hgb Hct MCV MCH MCHC RDW Plt Count MPV Neut % (Auto) Lymph % (Auto) [place] % (Auto) Eos % (Auto) Baso % (Auto) Neut # (Auto) Lymph # (Auto) [place] # (Auto) Eos # (Auto) Baso # (Auto) Nucleated RBC % (a uto) Nucleated RBCs # PT INR APTT Sodium Potassium Chloride Carbon Dioxide Anion Gap BUN Creatinine GFR Calculation Glucose POC Glucose 178 H Estimat Average Gl ucose 171 Hemoglobin A1c 7.6 H Calculated Osmolal ity Calcium Magnesium Total Bilirubin AST ALT Alkaline Phosphata se Total Protein Albumin Globulin Triglycerides 127 Cholesterol 143 LDL Cholesterol, C alc 76 HDL Cholesterol 42 L LDL/HDL Ratio 1.81 Cholesterol/HDL Ra quinten 3.40 TSH Urine Color Urine Appearance Urine pH Ur Specific Gravit y Urine Protein Urine Glucose (UA) Urine Ketones Urine Blood Urine Nitrate Urine Bilirubin Urine Urobilinogen Ur Leukocyte Shantal ase Urine Opiates Scre en Ur Barbiturates Sc reen Ur Phencyclidine S crn Ur Amphetamines Sc reen U Benzodiazepines Scrn Urine Cocaine Scre en U Marijuana (THC) Screen 02/16/21 02/16/21 02/16/21 04:45 04:45 04:45 WBC 7.7 RBC 5.45 H Hgb 16.3 Hct 48.4 MCV 88.8 MCH 29.9 MCHC 33.7 RDW 13.4 Plt Count 204 MPV 10.9 H Neut % (Auto) 52.1 Lymph % (Auto) 34.4 [place] % (Auto) 8.0 Eos % (Auto) 3.9 Baso % (Auto) 1.3 Neut # (Auto) 4.02 Lymph # (Auto) 2.7 [place] # (Auto) 0.6 Eos # (Auto) 0.3 Baso # (Auto) 0.1 Nucleated RBC % (a uto) 0 Nucleated RBCs # 0.0 PT 13.30 INR 0.98 APTT Sodium 139 Potassium 4.5 Chloride 106 Carbon Dioxide 22 Anion Gap 15.5 BUN 17 Creatinine 1.1 GFR Calculation 68.8 L Glucose 146 H POC Glucose Estimat Average Gl ucose Hemoglobin A1c Calculated Osmolal ity 292 Calcium 9.0 Magnesium 2.2 Total Bilirubin 0.4 AST 13 ALT 12 Alkaline Phosphata se 50 Total Protein 6.6 Albumin 4.1 Globulin 2.5 Triglycerides Cholesterol LDL Cholesterol, C alc HDL Cholesterol LDL/HDL Ratio Cholesterol/HDL Ra quinten TSH 0.86 Urine Color Urine Appearance Urine pH Ur Specific Gravit y Urine Protein Urine Glucose (UA) Urine Ketones Urine Blood Urine Nitrate Urine Bilirubin Urine Urobilinogen Ur Leukocyte Shantal ase Urine Opiates Scre en Ur Barbiturates Sc reen Ur Phencyclidine S crn Ur Amphetamines Sc reen U Benzodiazepines Scrn Urine Cocaine Scre en U Marijuana (THC) Screen 02/15/21 02/15/21 02/15/21 19:20 19:20 17:25 WBC RBC Hgb Hct MCV MCH MCHC RDW Plt Count MPV Neut % (Auto) Lymph % (Auto) [place] % (Auto) Eos % (Auto) Baso % (Auto) Neut # (Auto) Lymph # (Auto) [place] # (Auto) Eos # (Auto) Baso # (Auto) Nucleated RBC % (a uto) Nucleated RBCs # PT 13.00 INR 0.95 APTT 27.2 Sodium 138 Potassium 4.3 Chloride 105 Carbon Dioxide 18 L Anion Gap 19.3 H BUN 14 Creatinine 1.1 GFR Calculation 68.8 L Glucose 129 H POC Glucose Estimat Average Gl ucose Hemoglobin A1c Calculated Osmolal ity 288 Calcium 9.5 Magnesium Total Bilirubin 0.6 AST 17 ALT 16 Alkaline Phosphata se 59 Total Protein 7.5 Albumin 4.7 Globulin 2.8 Triglycerides Cholesterol LDL Cholesterol, C alc HDL Cholesterol LDL/HDL Ratio Cholesterol/HDL Ra quinten TSH Urine Color Urine Appearance Urine pH Ur Specific Gravit y Urine Protein Urine Glucose (UA) Urine Ketones Urine Blood Urine Nitrate Urine Bilirubin Urine Urobilinogen Ur Leukocyte Shantal ase Urine Opiates Scre en Negative Ur Barbiturates Sc reen Negative Ur Phencyclidine S crn Negative Ur Amphetamines Sc reen Negative U Benzodiazepines Scrn Negative Urine Cocaine Scre en Negative U Marijuana (THC) Screen Negative 02/15/21 02/15/21 02/15/21 17:25 16:57 16:57 WBC RBC Hgb Hct MCV MCH MCHC RDW Plt Count MPV Neut % (Auto) Lymph % (Auto) [place] % (Auto) Eos % (Auto) Baso % (Auto) Neut # (Auto) Lymph # (Auto) [place] # (Auto) Eos # (Auto) Baso # (Auto) Nucleated RBC % (a uto) Nucleated RBCs # PT Cancelled INR Cancelled APTT Cancelled Sodium Cancelled Potassium Cancelled Chloride Cancelled Carbon Dioxide Cancelled Anion Gap Cancelled BUN Cancelled Creatinine Cancelled GFR Calculation Cancelled Glucose Cancelled POC Glucose Estimat Average Gl ucose Hemoglobin A1c Calculated Osmolal ity Cancelled Calcium Cancelled Magnesium Total Bilirubin Cancelled AST Cancelled ALT Cancelled Alkaline Phosphata se Cancelled Total Protein Cancelled Albumin Cancelled Globulin Cancelled Triglycerides Cholesterol LDL Cholesterol, C alc HDL Cholesterol LDL/HDL Ratio Cholesterol/HDL Ra quinten TSH Urine Color Straw Urine Appearance Clear Urine pH 5 Ur Specific Gravit y 1.010 Urine Protein Neg Urine Glucose (UA) Trace H Urine Ketones 1+ H Urine Blood Neg Urine Nitrate Negative Urine Bilirubin Neg Urine Urobilinogen Norm Ur Leukocyte Shantal ase Negative Urine Opiates Scre en Ur Barbiturates Sc reen Ur Phencyclidine S crn Ur Amphetamines Sc reen U Benzodiazepines Scrn Urine Cocaine Scre en U Marijuana (THC) Screen 02/15/21 02/15/21 16:57 16:51 WBC 12.3 H RBC 5.67 H Hgb 17.0 H Hct 52.8 H MCV 93.1 MCH 30.0 MCHC 32.2 RDW 22.2 H Plt Count 214 MPV 10.5 H Neut % (Auto) 74.0 Lymph % (Auto) 19.0 [place] % (Auto) 4.6 Eos % (Auto) 1.1 Baso % (Auto) 0.9 Neut # (Auto) 9.14 H Lymph # (Auto) 2.3 [place] # (Auto) 0.6 Eos # (Auto) 0.1 Baso # (Auto) 0.1 Nucleated RBC % (a uto) 0 Nucleated RBCs # 0.0 PT INR APTT Sodium Potassium Chloride Carbon Dioxide Anion Gap BUN Creatinine GFR Calculation Glucose POC Glucose 129 H Estimat Average Gl ucose Hemoglobin A1c Calculated Osmolal ity Calcium Magnesium Total Bilirubin AST ALT Alkaline Phosphata se Total Protein Albumin Globulin Triglycerides Cholesterol LDL Cholesterol, C alc HDL Cholesterol LDL/HDL Ratio Cholesterol/HDL Ra quinten TSH Urine Color Urine Appearance Urine pH Ur Specific Gravit y Urine Protein Urine Glucose (UA) Urine Ketones Urine Blood Urine Nitrate Urine Bilirubin Urine Urobilinogen Ur Leukocyte Shantal ase Urine Opiates Scre en Ur Barbiturates Sc reen Ur Phencyclidine S crn Ur Amphetamines Sc reen U Benzodiazepines Scrn Urine Cocaine Scre en U Marijuana (THC) Screen Vitals: Last Vital Signs Temp 98.2 F 02/15/21 16:33 Pulse 65 02/16/21 05:02 Resp 16 02/16/21 05:02 BP 120/61 02/16/21 05:02 Pulse Ox 97 02/16/21 05:02 Discharge Plan Discharge Patient Disposition: Home Condition: Stable Prescriptions: New atorvastatin 40 mg Tablet 80 mg PO DAILY 30 Days Qty: 30 RF: 1 clopidogrel 75 mg Tablet 75 mg PO DAILY 30 Days Qty: 30 RF: 1 aspirin 81 mg Tablet,Delayed Release (Dr/Ec) 81 mg PO DAILY 30 Days Qty: 30 RF: 1 Continued anastrozole 1 mg tablet 1 mg PO Q7D RF: 0 lisinopril 20 mg Tablet 20 mg PO DAILY RF: 0 ibuprofen 200 mg Tablet 600 mg PO Q4H PRN (Reason: Pain) RF: 0 vitamin B complex Tablet 1 tab PO DAILY RF: 0 Vitamin B-1 1 tab PO DAILY RF: 0 linagliptin-metformin 2.5-1,000 mg Tablet, Ir - Er, Biphasic 24hr 2 tab PO DAILY RF: 0 Held amlodipine 10 mg tablet 10 mg PO BEDTIME RF: 0 Hold Instructions: see neurologist before resuming sildenafil (pulm.hypertension) 20 mg tablet 100 mg PO PRN PRN (Reason: Erectile Dysfunction) RF: 0 Hold Instructions: see neurologist before resuming potassium gluconate 595 mg (99 mg) Tablet 495 mg PO .FIVE TIMES A DAY RF: 0 Hold Instructions: see neurologist before resuming magnesium 1 tab PO DAILY RF: 0 Hold Instructions: see neurologist before resuming testosterone cypionate 100 mg/mL Oil 100 mg IM Q7D RF: 0 Hold Instructions: see neurologist before resuming Discontinued aspirin [Aspir-81] 81 mg Tablet,Delayed Release (Dr/Ec) 324 mg PO ONCE RF: 0 Discharge Orders: Discharge Order (Routine); Ordered 02/16/21 Ordered By: Josefina Mendez Referrals: Joselyn Walden MD [Physician] - 02/21/21 8:45 am Discharge Diet: Diabetic, Low Salt and Low Cholesterol Discharge Activity: Increase activity as tolerated Patient Instructions: Aspirin (By mouth), Atorvastatin (By mouth), Clopidogrel (By mouth), Ischemic Stroke (DC), Opioid Safety, Stroke Stoplight Activity Restrictions/Additional Instructions: Check blood pressure at home and if greater than 140/90 while on lisinopril 20 mg a day, at that point you can restart your amlodipine 10 mg daily. For now sending you just on lisinopril looking at your blood pressure trend. KEEP APPOINTMENT WITH [facility]IMARY [facility] ON MARCH 07 IN [facility] Discharge Attestations Time Spent in Discharge Care*: less than 30 min Quality Metrics Clinical Quality Measures During this hospital stay, did patient experience: None Coding Level of Care Code Acute Chg FW DC note Diagnoses Stroke I63.9 HTN (hypertension) I10 Diabetes E11.9 Nicotine dependence F17.200
[2021-02-16 18:03] VITALS: BP 148/92; PULSE 76; RESP 20; TEMP 37.2; O2SAT 98
== END 2021-02-16 17:35 | disposition home or self-care (01) ==
LOC: ER 18:56 → ER IP 02-16 07:35 → MEDSURG 02-16 09:40
PROVIDERS: Admitting Provider Internal Medicine; Emergency Provider Family Medicine; Visit Provider Internal Medicine
DX: I63.9 Cerebral infarction, unspecified (principal); I65.23 Occlusion and stenosis of bilateral carotid arteries; I10 Essential (primary) hypertension; E11.9 Type 2 diabetes mellitus without complications; F17.200 Nicotine dependence, unspecified, uncomplicated; Z79.82 Long term (current) use of aspirin
CPT/HCPCS: 36415; 36416; 70450; 70496; 70498; 70551; 71045; 80053; 80061; 80306; 81003; 82962; 83036; 83735; 84443; 85025; 85610; 85730; 92523; 92610; 93005; 93306; 93880; 96372; 97161; 99285; G0378; J1650; Q9967

== ENCOUNTER → 2021-02-21 08:37 | Outpatient (BNVA) | payer OTHER, SELFPAY | PROVIDERS: Visit Provider Specialist | DX: I10 Essential (primary) hypertension (principal); E11.9 Type 2 diabetes mellitus without complications; Z79.84 Long term (current) use of oral hypoglycemic drugs; Z86.73 Personal history of transient ischemic attack (TIA), and cerebral infarction without residual deficits; F17.200 Nicotine dependence, unspecified, uncomplicated | CPT/HCPCS: 99205 ==

== ENCOUNTER → 2021-07-25 08:12 | Outpatient (BNVA) | payer OTHER, SELFPAY | PROVIDERS: Visit Provider Specialist | DX: E11.9 Type 2 diabetes mellitus without complications (principal); I10 Essential (primary) hypertension; Z86.73 Personal history of transient ischemic attack (TIA), and cerebral infarction without residual deficits; F17.200 Nicotine dependence, unspecified, uncomplicated | CPT/HCPCS: 99214 ==

== ENCOUNTER → 2021-08-25 10:11 | Outpatient (BNVA) | payer OTHER, SELFPAY | PROVIDERS: Visit Provider Internal Medicine Cardiovascular Disease | DX: I63.9 Cerebral infarction, unspecified (principal); I10 Essential (primary) hypertension; E11.9 Type 2 diabetes mellitus without complications; F17.210 Nicotine dependence, cigarettes, uncomplicated; Z79.84 Long term (current) use of oral hypoglycemic drugs | CPT/HCPCS: 99204 ==

== ENCOUNTER 2022-01-22 22:59 | Inpatient (IN) | payer OTHER, SELFPAY ==
[2022-01-22 23:01] VITALS: BP 135/77; PULSE 108; RESP 16; TEMP 36.7; O2SAT 98
--- NOTE | 2022-01-22 23:03 | ECG_ITS ---
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 Measurements Intervals [place] Rate: 101 P: 57 LA: 171 QRS: 55 QRSD: 92 T: -31 QT: 331 QTc: 430 Interpretive Statements [address]US [address] DEVIATION AND MODERATE T-WAVE ABNORMALITY, CONSIDER INFERIOR ISCHEMIA [-0.1+ mV T-WAVE IN II/aVF] Compared to ECG 02/15/2021 17:13:29 T-wave abnormality now present Possible ischemia now present Sinus rhythm no longer present Electronically Signed On 01-23-2022 17:39:06 CDT by Fred Vaca M.D. [email or web address]
--- NOTE | 2022-01-22 23:22 | XRR_ITS ---
PROCEDURE INFORMATION: Exam: XR Chest Exam date and time: 01/22/2022 11:48 PM Age: 61 years old Clinical indication: Pain; Chest pressure; Additional info: Cp TECHNIQUE: Imaging protocol: Radiologic exam of the chest. Views: 1 view. COMPARISON: CR XR chest 1V portable [id number] 02/16/2021 12:42 PM FINDINGS: Lungs: Some subtle haziness seen in the left lower hemithorax, findings that may represent atelectasis although left basilar pneumonitis cannot be entirely excluded. Pleural spaces: Unremarkable. No pleural effusion. No pneumothorax. Heart/Mediastinum: Unremarkable. No cardiomegaly. Bones/joints: Unremarkable. XR/XR chest 1V portable [id number] IMPRESSION: Subtle haziness in the left lower hemithorax may represent atelectasis although a left basilar pneumonitis can't be entirely excluded.
--- NOTE | 2022-01-22 23:22 | ECG_ITS ---
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 Measurements Intervals [place] Rate: 101 P: 57 [place]: 171 QRS: 55 QRSD: 92 T: -31 QT: 331 QTc: 430 Interpretive Statements SINUS TACHYCARDIA ST DEVIATION AND MODERATE T-WAVE ABNORMALITY, CONSIDER INFERIOR ISCHEMIA [-0.1+ mV T-WAVE IN II/aVF] Compared to ECG 02/15/2021 17:13:29 T-wave abnormality now present Possible ischemia now present Sinus rhythm no longer present Electronically Signed On 01-23-2022 17:38:57 CDT by Fred Vaca M.D. [id number]
[2022-01-22 23:24] VITALS: BP 154/87; PULSE 91; RESP 16; O2SAT 99
--- NOTE | 2022-01-22 23:28 | PC.NURSE ---
Pt placed in gown
[2022-01-22] MEDS: aspirin 81 mg Chew Tablet 324 MG PO (23:44)
[2022-01-22 23:45] VITALS: RESP 18
[2022-01-22] MEDS: morphine 4 mg/mL SDV 1 mL IVP (23:45)
[2022-01-22] MEDS: ondansetron 2 mg/ML SDV 2 mL 4 MG IVP (23:47)
[2022-01-22 23:51] VITALS: BP 109/63; PULSE 73; RESP 16; O2SAT 96
[2022-01-23] VITALS (38 sets, daily range): BP systolic 90–154; BP diastolic 56–88; PULSE 57–102; RESP 7–22; TEMP 36.8–37.1; O2SAT 87–99
[2022-01-23 00:04] LABS: Basophils % 0.9 %; Eosinophils % 0.5 %; Hematocrit 41.2 % (42.0-52.0); Hemoglobin 13.9 g/dL (11.7-16.6); Lymphocytes # 2.5 10^3/uL (0.8-4.8); Lymphocytes % 56.3 %; Mean Corpuscular HGB Conc 33.7 g/dL (30.0-36.0); Mean Corpuscular Hemoglobin 29.2 pg (28.0-34.0); Mean Corpuscular Volume 86.6 fl (80-94); Mean Platelet Volume 10.5 fL (7.4-10.4); Monocytes # 0.5 10^3/uL (0.2-0.9); Monocytes % 10.1 %; Neutrophils # 1.42 10^3/uL (1.8-7.7); Nucleated Red Blood Cells % 0 %; Platelet Count 178 10^3/cmm (130-400); Red Blood Count 4.76 10^6/uL (4.1-5.3); Red Cell Distribution Width 12.4 % (12.1-15.1); White Blood Count 4.4 10^3/uL (4.0-10.0)
[2022-01-23 00:15] LABS: Partial Thromboplastin Time 29.8 SECONDS (23.9-36.7)
[2022-01-23 00:17] LABS: D Dimer 1.72 ug/mIFEU (0-0.59)
[2022-01-23 00:26] LABS: Troponin(5th) Baseline 9 ng/L (0-15)
--- NOTE | 2022-01-23 00:28 | CTR_ITS ---
PROCEDURE INFORMATION: Exam: CTA Chest With Contrast Exam date and time: 01/23/2022 12:37 AM Age: 61 years old Clinical indication: Pain; Chest pressure; Additional info: Chest pain TECHNIQUE: Imaging protocol: Computed tomographic angiography of the chest with contrast. 3D rendering (Not supervised by radiologist): MIP and/or 3D reconstructed images were created by the technologist. Radiation optimization: All CT scans at this facility use at least one of these dose optimization techniques: automated exposure control; mA and/or kV adjustment per patient size (includes targeted exams where dose is matched to clinical indication); or iterative reconstruction. Contrast material: OMNI 350; Contrast volume: 95 ml; Contrast route: INTRAVENOUS (IV); COMPARISON: CR (CHEST, ) 01/22/2022 11:48 PM RADIATION DOSE METRICS: Total DLP (mGy-cm): 453.39 FINDINGS: Pulmonary arteries: Normal. No pulmonary emboli. Aorta: Unremarkable. No aortic aneurysm. No aortic dissection. Lungs: Unremarkable. No consolidation. No masses. Pleural spaces: Unremarkable. No pneumothorax. No pleural effusion. Heart: Calcifications are seen in the coronary arteries. Lymph nodes: Unremarkable. No enlarged lymph nodes. Bones/joints: Unremarkable. No acute fracture. Soft tissues: Unremarkable. CT/CT angio chest PE protcl [id number] IMPRESSION: 1. There is no evidence for pulmonary emboli. 2. There are no acute chest findings.
[2022-01-23 00:31] LABS: Alanine Aminotransferase 24 U/L (0-41); Alkaline Phosphatase 78 U/L (40-130); Aspartate Amino Transferase 20 U/L (0-40); Blood Urea Nitrogen 17 mg/dL (6-20); Calcium 9.6 mg/dL (8.5-10.5); Carbon Dioxide 21 mmol/L (22-29); Chloride 99 mmol/L (98-107); Globulin 3.1 g/dL (1.3-4.6); Glomerular Filtration Rate 56.5 mL/min (90-130); Glucose 299 mg/dL (65-115); NT Pro B Type Natriuretic Pept 89 pg/mL (0-125); Osmolality Calculated 289 mOsm/kg (285-295); Sodium 133 mmol/L (136-145); Total Bilirubin 0.3 mg/dL (0.15-1.2); Total Protein 7.1 g/dL (6.6-8.7)
[2022-01-23 00:36] LABS: Creatinine Clr Calc Pharmacy 78.2277
[2022-01-23] MEDS: iohexol 350 mg/mL 100 mL Btl IV (00:46)
[2022-01-23] MEDS: morphine 4 mg/mL SDV 1 mL IVP (00:58)
[2022-01-23 01:07] LABS: SARS Covid-2 Antigen Negative (Negative)
[2022-01-23 01:58] LABS: Troponin 5 2HR 42.61 ng/L (0-15)
--- NOTE | 2022-01-23 02:00 | ED_ITS ---
HPI - Chest Pain General: Chief Complaint: Chest Pain Stated Complaint: CP; nausea Time Seen by Provider: 01/22/22 23:18 Source: patient and family History of Present Illness: 61-year-old male with a history of stroke and hypertension. He also has diabetes. He presents with left sided chest discomfort that began this evening. Some nausea. No vomiting or shortness of breath. No fever. He has not had pain like this before. MD complaint: chest pain Pertinent past history: other Onset (ago): hour(s) Timing of current episode: constant Prior episodes: No Onset: during rest Pain location: left chest Pain radiation: none Quality: heaviness Relieving factors: nothing Exacerbating factors: nothing Associated symptoms: Reports diaphoresis and nausea; Deny abdominal pain, dyspnea, fever(s), leg edema, palpitations or vomiting Treatment prior to arrival: none Risk Factors: Coronary artery disease risk factors: diabetes, hyperlipidemia and hypertension Review of Systems Const: Reports: diaphoresis; Denies: fever(s) ENMT: Denies: throat pain Card: Reports: chest pain; Denies: palpitations Resp: Denies: dyspnea GI: Reports: nausea; Denies: abdominal pain or vomiting Musc: Denies: neck pain PFSH ED PFSH: Medical History Diabetes HTN (hypertension) Nicotine dependence Family History Father , [place] Myocardial infarct Other Diabetes Social History Smoking and tobacco status: current every day smoker (only 2 cigs a day) Physical Exam Const: COMMON NORMALS: no acute distress HENMT: COMMON NORMALS: normocephalic and atraumatic HEAD & SCALP: normocephalic and atraumatic Eye: COMMON NORMALS: Equal, round and reactive pupils present and EOMs intact bilaterally PUPIL: Yes Equal, round and reactive pupils present Neck/C-Spine: GENERAL: Yes trachea midline Chest: CHEST: Yes Symmetrical chest wall rise Resp: COMMON NORMALS: normal respiratory effort, No use of accessory muscles and clear to auscultation bilaterally AUSCULTATION: clear to auscultation bilaterally Cardio: COMMON NORMALS: regular rate and regular rhythm RATE: regular rate RHYTHM: regular rhythm GI: COMMON NORMALS: Normal to inspection, nondistended, normoactive bowel sounds present, Soft to palpation and non-tender PALPATION: Yes Soft to palpation Extremity: COMMON NORMALS: no pedal edema Neuro: SONNY COMA SCALE: document GCS findings Sonny coma scale eye opening: Spontaneous Sonny coma scale verbal response: Orientated Sonny coma scale motor response: Obey commands [place] coma scale total score: 15 SPEECH: speech normal Skin: COMMON NORMALS: no rashes or lesions noted GENERAL SKIN EXAM: no rashes or lesions noted Course Vital Signs: Vital signs: Vital Signs Temperature 98.1 F 01/22/22 23:01 Pulse Rate 57 L 01/23/22 02:10 Respiratory Rate 22 H 01/23/22 02:10 Blood Pressure 90/58 01/23/22 02:10 Pulse Oximetry 94 01/23/22 02:10 Oxygen Delivery Me thod 01/22/22 23:51 MDM - Chest Pain Medical Decision Making CBC not remarkable. BMP shows hyperglycemia with a creatinine of 1.3. First troponin is 9. Second troponin is 43 with a delta of 33. D-dimer was significantly elevated, so CTA was performed. It shows no significant pneumonia. No PE. Pain is essentially resolved. His delta troponin is concerning for NSTEMI. He will be treated as such. He is given Lovenox in the ER. He had previously been given aspirin and nitroglycerin. Currently blood pressure is 90/60, so nitroglycerin will not be continued. He will be observed. Hospitalist will see patient in the ER. Lab Data : 01/22/22 23:49 01/22/22 23:49 Radiology Impressions Chest X-Ray 01/22/22 23:22 IMPRESSION: Subtle haziness in the left lower hemithorax may represent atelectasis although a left basilar pneumonitis can't be entirely excluded. Chest CTA 01/23/22 00:28 IMPRESSION: 1. There is no evidence for pulmonary emboli. 2. There are no acute chest findings. Laboratory Results WBC 4.4 10^3/uL (4.0-10.0) 01/22/22 23:49 RBC 4.76 10^6/uL (4.1-5.3) 01/22/22 23:49 Hgb 13.9 g/dL (11.7-16.6) 01/22/22 23:49 Hct 41.2 % (42.0-52.0) L 01/22/22 23:49 MCV 86.6 fl (80-94) 01/22/22 23:49 MCH 29.2 pg (28.0-34.0) 01/22/22 23:49 MCHC 33.7 g/dL (30.0-36.0) 01/22/22 23:49 RDW 12.4 % (12.1-15.1) 01/22/22 23:49 Plt Count 178 10^3/cmm (130-400) 01/22/22 23:49 MPV 10.5 fL (7.4-10.4) H 01/22/22 23:49 Neut % (Auto) 32.0 % 01/22/22 23:49 Lymph % (Auto) 56.3 % 01/22/22 23:49 Winkler % (Auto) 10.1 % 01/22/22 23:49 Eos % (Auto) 0.5 % 01/22/22 23:49 Baso % (Auto) 0.9 % 01/22/22 23:49 Neut # (Auto) 1.42 10^3/uL (1.8-7.7) L 01/22/22 23:49 Lymph # (Auto) 2.5 10^3/uL (0.8-4.8) 01/22/22 23:49 Winkler # (Auto) 0.5 10^3/uL (0.2-0.9) 01/22/22 23:49 Eos # (Auto) 0.0 10^3/uL (0.0-0.8) 01/22/22 23:49 Baso # (Auto) 0.0 10^3/uL (0.0-0.1) 01/22/22 23:49 Nucleated RBC % (auto) 0 % 01/22/22 23:49 Nucleated RBCs # 0.0 /100WBC 01/22/22 23:49 PT 13.50 SECONDS (12.1-14.9) 01/22/22 23:49 INR 1.00 (0.8-1.2) 01/22/22 23:49 APTT 29.8 SECONDS (23.9-36.7) 10/02/22 23:49 D-Dimer 1.72 ug/mIFEU (0-0.59) H 01/22/22 23:49 Sodium 133 mmol/L (136-145) L 01/22/22 23:49 Potassium 4.0 mmol/L (3.5-5.1) 01/22/22 23:49 Chloride 99 mmol/L (98-107) 01/22/22 23:49 Carbon Dioxide 21 mmol/L (22-29) L 01/22/22 23:49 Anion Gap 17.0 (5-19) 01/22/22 23:49 BUN 17 mg/dL (6-20) 01/22/22 23:49 Creatinine 1.3 mg/dL (0.7-1.2) H 01/22/22 23:49 GFR Calculation 56.5 mL/min (90-130) L 01/22/22 23:49 Glucose 299 mg/dL (65-115) H 01/22/22 23:49 Calculated Osmolality 289 mOsm/kg (285-295) 01/22/22 23:49 Calcium 9.6 mg/dL (8.5-10.5) 01/22/22 23:49 Total Bilirubin 0.3 mg/dL (0.15-1.2) 01/22/22 23:49 AST 20 U/L (0-40) 01/22/22 23:49 ALT 24 U/L (0-41) 01/22/22 23:49 Alkaline Phosphatase 78 U/L (40-130) 01/22/22 23:49 Troponin T Baseline 9 ng/L (0-15) 01/22/22 23:49 Troponin T 120 Minute 42.61 ng/L (0-15) H 01/23/22 01:35 Delta Troponin T 33.61 ABS# (0-10) H* 01/23/22 01:35 NT-Pro-B Natriuret Pep 89 pg/mL (0-125) 01/22/22 23:49 Total Protein 7.1 g/dL (6.6-8.7) 01/22/22 23:49 Albumin 4.0 g/dL (3.5-5.2) 01/22/22 23:49 Globulin 3.1 g/dL (1.3-4.6) 01/22/22 23:49 SARS-CoV-2 Ag (Rapid) Negative (Negative) 01/23/22 00:32 Discharge Plan Discharge Patient Disposition: Placed in Observation Clinical Impression: Non-ST elevated myocardial infarction (non-STEMI) Coding Level of Care Code 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
[2022-01-23 02:01] LABS: Troponin 5 2HR Delta 33.61 ABS# (0-10)
[2022-01-23] MEDS: enoxaparin 100 mg/mL Syringe SUBCUT ×2 (02:25→14:19)
--- NOTE | 2022-01-23 02:27 | PM.HP ---
Providers/Chief Complaint Chief Complaint: CP; nausea History of Present Illness Nithin Shin is a 61 year old male with past medical history of hypertension diabetes CVA came in with chief complaint of pressure-like substernal chest pain 6 out of 10 in severity nonradiating, started yesterday evening, intermittent in nature, initially subsided on its own, but today got worsened around evening which brought him to the hospital, was accompanied with nausea and vomiting, and diaphoresis was relieved with morphine. He denied any palpitation, fever cough shortness of breath. Upon arrival in the ER he was worked up for above-mentioned complaints: Pertinent imaging studies: CTA chest: No pulmonary embolism no effusion no infiltrates, no pneumothorax EKG; SR, no acute ST-T wave changes. Pertinent labs: WBC 4.4, H&H 13/41 PLT : 178 , sodium 133 potassium 4 , BUN SCR: 17/1.3 , D-dimer 1.72 Troponin: 9-42 Review of Systems General: Reports: 10 or more systems reviewed and unremarkable except in HPI and below Const: Denies: fever(s), chills, body aches, change in appetite or diaphoresis Card: Denies: palpitations, edema, swelling of feet/ankles, dyspnea on exertion, orthopnea or leg pain with exertion Resp: Denies: dyspnea, productive cough, wheezing or pain on inspiration GI: Denies: abdominal pain, nausea, vomiting, diarrhea or constipation : Denies: flank pain or difficulty urinating Musc: Denies: back pain, extremity pain or extremity swelling Neuro: Denies: headache(s), difficulty walking or confusion Medications/Allergies Home Medications Medication Instructions Recorded Confirmed Last Taken Type amlodipine 10 mg tablet 10 mg PO BEDTIME 02/15/21 08/25/21 02/14/21 History vitamin B complex 1 tab PO DAILY 02/15/21 08/25/21 Unknown History aspirin 81 mg tablet,delayed 81 mg PO DAILY 30 days #30 tabs 02/16/21 08/25/21 Unknown Rx release atorvastatin 40 mg tablet 80 mg PO DAILY 30 days #30 tabs 02/16/21 08/25/21 Unknown Rx linagliptin 2.5 mg-metformin ER 2 tab PO DAILY [facility] 02/16/21 08/25/21 Unknown History 1,000 mg tablet,extended release states they fill the er for 2 tabs 24 hr daily [phone] testosterone cypionate 100 mg/mL 100 mg IM Q7D 02/16/21 08/25/21 Unknown History intramuscular oil glipizide 10 mg tablet 10 mg PO DAILY PRN 08/25/21 08/25/21 Unknown History losartan 100 1 tab PO DAILY #90 tabs 08/25/21 08/25/21 Unknown Rx mg-hydrochlorothiazide 25 mg tablet Allergies Allergy/AdvReac Type Severity Reaction Status Date / Time No Known Allergies Allergy Verified 07/25/21 08:30 PFSH Acute PFSH: Medical History Diabetes HTN (hypertension) Nicotine dependence Family History Father , [place] Myocardial infarct Other Diabetes Social History Smoking and tobacco status: current every day smoker (only 2 cigs a day) Vitals/I&O/Wt Last Vital Signs Temp 98.1 F 01/22/22 23:01 Pulse 57 L 01/23/22 02:10 Resp 22 H 01/23/22 02:10 BP 90/58 01/23/22 02:10 Pulse Ox 94 01/23/22 02:10 O2 Del Method 01/22/22 23:51 Weight last 48 hrs Weight 106.141 kg Physical Exam Const: COMMON NORMALS: patient oriented x3 Resp: COMMON NORMALS: clear to auscultation bilaterally EFFORT & INSPECTION: Yes symmetric chest movement AUSCULTATION: clear to auscultation bilaterally Cardio: COMMON NORMALS: regular rate, regular rhythm, S1 normal heart sound present, S2 normal heart sound present, No gallops present (Cardio), No murmurs present (Cardio), No rub (Cardio) and Peripheral pulses 2+ throughout RATE: regular rate RHYTHM: regular rhythm HEART SOUNDS: S1 normal heart sound present and S2 normal heart sound present PERIPHERAL PULSES: Peripheral pulses 2+ throughout GI: COMMON NORMALS: Normal to inspection, nondistended, normoactive bowel sounds present, Soft to palpation, non-tender, No hepatosplenomegaly present and no masses AUSCULTATION: Yes normoactive bowel sounds PALPATION: Yes Soft to palpation and Yes No hepatosplenomegaly present RECTAL EXAM: Yes deferred Extremity: COMMON NORMALS: no clubbing, cyanosis or edema and no pedal edema Neuro: COMMON NORMALS: patient oriented x3 Data : 01/23/22 03:29 01/23/22 03:29 A&P Assessment and plan (1) Non-ST elevated myocardial infarction (non-STEMI): (2) HTN (hypertension): (3) Diabetes: (4) Nicotine dependence: (5) Stroke: Plan 61 year old male with past medical history of hypertension diabetes CVA came in with chief complaint of pressure-like substernal chest pain 6 out of 10 in severity nonradiating, started yesterday evening, intermittent in nature, initially subsided on its own, but today got worsened around evening which brought him to the hospital, was accompanied with nausea and vomiting, and diaphoresis was relieved with morphine. He denied any palpitation, fever cough shortness of breath. Assessment: NSTEMI Typical cardiac chest pain Hypertension Diabetes history of CVA Plan: Follow 2D echo Troponin trend: Serial EKG Telemetry monitoring Continue aspiriN, statin, will initiate low-dose beta-dagoberto, sublingual nitro, Nitropaste Currently his blood pressure is slightly soft: We will hold amlodipine losartan hydrochlorothiazide for now. Low-dose sliding scale insulin, monitor fingerstick glucose Cardiology consult CODE STATUS: Full code DVT prophylaxis: Lovenox Attestations Medical Necessity Statement*: Patient needs to be in hospital for management of NSTEMI. Anticipated length of stay greater than 2 midnights. Time Spent in Patient Care: Greater than 35 minutes (>than 50% of time spent in counselling and/or direct pt care on unit). Coding Level of Care Code Acute Instructional Support Specialist for Chg Fwd Exam Detailed Diagnoses Non-ST elevated myocardial infarction (non-STEMI) I21.4 HTN (hypertension) I10 Diabetes E11.9 Nicotine dependence F17.200 Stroke I63.9
--- NOTE | 2022-01-23 02:28 | ECG_ITS ---
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 Measurements Intervals [place]et Rate: 88 P: 44 IN: 191 QRS: 36 QRSD: 87 T: 29 QT: 348 QTc: 422 Interpretive Statements SINUS RHYTHM POSSIBLE LEFT ATRIAL ENLARGEMENT [-0.1mV P-WAVE IN V1/V2] Compared to ECG 01/22/2022 23:03:55 Sinus tachycardia no longer present T-wave abnormality no longer present Possible ischemia no longer present Electronically Signed On 01-23-2022 17:44:06 CDT by Fred Vaca M.D. [email or web address]
[2022-01-23] MEDS: sodium chloride 0.9% 1,000 ML 75 ML IV (02:55)
--- NOTE | 2022-01-23 03:37 | PC.NURSE ---
Report given to CSUche Zafar
[2022-01-23 03:43] LABS: Basophils % 0.9 %; Eosinophils % 0.2 %; Hematocrit 40.1 % (42.0-52.0); Hemoglobin 13.3 g/dL (11.7-16.6); Lymphocytes # 1.5 10^3/uL (0.8-4.8); Lymphocytes % 32.4 %; Mean Corpuscular HGB Conc 33.2 g/dL (30.0-36.0); Mean Corpuscular Hemoglobin 29.2 pg (28.0-34.0); Mean Corpuscular Volume 87.9 fl (80-94); Mean Platelet Volume 10.3 fL (7.4-10.4); Monocytes # 0.4 10^3/uL (0.2-0.9); Monocytes % 8.1 %; Neutrophils # 2.65 10^3/uL (1.8-7.7); Neutrophils % 58.4 %; Nucleated Red Blood Cells % 0 %; Platelet Count 165 10^3/cmm (130-400); Red Blood Count 4.56 10^6/uL (4.1-5.3); Red Cell Distribution Width 12.5 % (12.1-15.1); White Blood Count 4.5 10^3/uL (4.0-10.0)
[2022-01-23 04:03] LABS: Troponin 5 6HR 105.3 ng/L (0-15); Troponin 5 6HR Delta 96.3 ng/L (0-12)
[2022-01-23] MEDS: nitroglycerin 1 gm/inch oint Pkt 0.5 INCH TOPICAL ×3 (04:07→18:17)
[2022-01-23 04:08] LABS: Alanine Aminotransferase 22 U/L (0-41); Albumin Level 3.9 g/dL (3.5-5.2); Alkaline Phosphatase 72 U/L (40-130); Aspartate Amino Transferase 39 U/L (0-40); Blood Urea Nitrogen 15 mg/dL (6-20); Calcium 9.5 mg/dL (8.5-10.5); Carbon Dioxide 24 mmol/L (22-29); Chloride 101 mmol/L (98-107); Chol HDL Ratio 5.32 mg/dL (1.0-5.00); Cholesterol 181 mg/dL (0-200); Glomerular Filtration Rate 68.5 mL/min (90-130); Glucose 226 mg/dL (65-115); HDL Cholesterol 34 mg/dL (60-100); LDL Cholesterol Calculated 119 mg/dL (50-129); Magnesium 2.1 mg/dL (1.7-2.3); Osmolality Calculated 288 mOsm/kg (285-295); Sodium 135 mmol/L (136-145); Thyroid Stimulating Hormone 1.85 uIU/mL (0.27-4.20); Total Bilirubin 0.3 mg/dL (0.15-1.2); Total Protein 6.9 g/dL (6.6-8.7); Triglycerides 141 mg/dL (0-150)
[2022-01-23 04:11] LABS: Anion Gap 14.2 (5-19); Potassium 4.2 mmol/L (3.5-5.1)
[2022-01-23 04:42] LABS: Estmated Average Glucose 174; Hemoglobin A1C 7.7 % (4.0-6.0)
--- NOTE | 2022-01-23 05:03 | USCV_ITS ---
Kip Nithin Age: 61 Gender: M : 1960 Exam Date: 01/23/2022 08:00 Ordering Phys: Joseph Geronimo MD Technologist: Deric Mendosa [place] [facility] [place]: chest pain BP: 125 / 69 HR: 69 Rhythm: Sinus Technical Quality: Suboptimal MEASUREMENTS (Male / Female) Normal Values 2D ECHO LV Diastolic Diameter PLAX 3.8 cm 4.2 - 5.9 / 3.9 - 5.3 cm LV Systolic Diameter PLAX 2.3 cm IVS Diastolic Thickness 1.2 cm 0.6 - 1.0 / 0.6 - 0.9 cm IVS Systolic Thickness 1.2 cm LVPW Diastolic Thickness 1.5 cm 0.6 - 1.0 / 0.6 - 0.9 cm LVPW Systolic Thickness 1.6 cm LVOT Diameter 2.1 cm LV Ejection Fraction 2D Teich 69.9 % LV Ejection Fraction MOD 2C 72.2 % LV Ejection Fraction 2C AL 73.2 % LA Diameter 3.0 cm Aorta at Sinotubular Diameter 3.2 cm M-MODE Aortic Annulus Diameter 4.1 cm LA Ao Ratio MM 0.7 MV E Point Septal Separation 0.7 cm DOPPLER AV Peak Velocity 123.0 cm/s LVOT Peak Velocity 93.0 cm/s AV Area Cont Eq vti 3.1 cm squared AV Area Cont Eq pk 2.5 cm squared MV Area PHT 5.1 cm squared Mitral E to A Ratio 0.7 MV E' Velocity 33.0 cm/s Mitral E to MV E' Ratio 6.7 Mitral E to LV E' Lateral Ratio 5.6 Mitral E to LV E' Septal Ratio 8.4 TR Peak Velocity 182.5 cm/s TR Peak Gradient 13.3 mmHg TV Peak E Velocity 93.0 cm/s Right Atrial Pressure 3.0 mmHg Pulmonary Artery Systolic Pressu 16.3 mmHg RV Acceleration Time 0.1 s FINDINGS Left Ventricle Normal left ventricular size, systolic function and wall thickness. Left ventricular ejection fraction is estimated at 60 %. Possible mild hypokinesis of inferoseptal wall. Normal diastolic function. Right Ventricle Normal right ventricular size and systolic function. Right ventricular systolic pressure 16.3 mmHg. Right Atrium Normal right atrial size. Left Atrium Normal left atrial size. Mitral Valve Mildly thickened mitral valve. No mitral valve stenosis. Trace mitral valve regurgitation. Aortic Valve Aortic valve not well visualized. Probably trileaflet aortic valve. No aortic valve stenosis. No aortic valve regurgitation. Tricuspid Valve Structurally normal tricuspid valve. No tricuspid valve stenosis. Trace to mild tricuspid valve regurgitation. Pulmonic Valve Structurally normal pulmonic valve. No pulmonary valve stenosis. No pulmonary valve regurgitation. Pericardium No pericardial effusion. Aorta Normal size aortic root and proximal ascending aorta. IVC Inferior vena cava not visualized. CONCLUSIONS 1. Normal left ventricular size, systolic function and wall thickness. Left ventricular ejection fraction is estimated at 60 %. Possible mild hypokinesis of inferoseptal wall. Normal diastolic function. 2. Normal right ventricular size and systolic function. 3. Trace to mild tricuspid valve regurgitation. 4. Normal pulmonary artery pressure. 5. When compared to previous study dated 02/16/2021, there is possible hypokinesis of inferoseptal wall now. Jayleen Oconnell MD (Electronically Signed) Final Date: 23 January 2022 12:50 S
--- NOTE | 2022-01-23 05:16 | ECG_ITS ---
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 Measurements Intervals [place] Rate: 74 P: 39 DC: 181 QRS: 36 QRSD: 89 T: 49 QT: 352 QTc: 392 Interpretive Statements SINUS RHYTHM Compared to ECG 01/23/2022 02:28:10 No significant changes Electronically Signed On 01-23-2022 17:43:53 CDT by Fred Vaca M.D. [id number]
[2022-01-23 06:29] LABS: Glucose Point of Care 163 mg/dL (70-110)
--- NOTE | 2022-01-23 07:19 | P.CONIM_ITS ---
Providers/Reason For Consult Consulting Physician/Specialty*: Dr. Oconnell, Cardiology Reason for Consult*: NSTEMI Attending Physician: Joseph Geronimo MD History of Present Illness History of Present Illness Nithin Shin is a 61 year old with past medical history of hypertension, diabetes, smoker, CVA (02/10) presented with chief complaint of pressure-like substernal chest pain 6 out of 10 in severity with radiation to left shoulder that started yesterday evening that was initially intermittent in nature but got worse. He took aspirin 325 mg and then presented to the ER for further evaluation. His chest pain was associated with nausea and vomiting, and diaphoresis and it was relieved with morphine. He denied any palpitation, fever cough shortness of breath. CTA chest: No pulmonary embolism no effusion no infiltrates, no pneumothorax. EKG with ST depression and T wave inversion in inferior leads which normalized on subsequent EKG's. Pertinent labs: WBC 4.4, H&H 13/41 PLT : 178 , sodium 133 potassium 4 , BUN SCR: 17/1.3? , D-dimer 1.72 Troponin: 9-> 42--> 105. At the time of evaluation. He is chest pain-free. Review of Systems General: Reports: 10 or more systems reviewed and unremarkable except in HPI and below Const: Denies: fever(s), chills, body aches, change in appetite or diaphoresis Card: Reports: chest pain; Denies: palpitations, edema, swelling of feet/ankles, dyspnea on exertion, orthopnea or leg pain with exertion Resp: Denies: dyspnea, productive cough, wheezing or pain on inspiration GI: Denies: abdominal pain, nausea, vomiting, diarrhea or constipation : Denies: flank pain or difficulty urinating Musc: Denies: back pain, extremity pain or extremity swelling Neuro: Denies: headache(s), difficulty walking or confusion Medications/Allergies Home Medications Medication Instructions Recorded Confirmed Last Taken Type amlodipine 10 mg tablet 10 mg PO BEDTIME 02/15/21 08/25/21 02/14/21 History aspirin 81 mg tablet,delayed 81 mg PO DAILY 30 days #30 tabs 02/16/21 08/25/21 Unknown Rx release linagliptin 2.5 mg-metformin ER 2 tab PO DAILY [facility] 02/16/21 08/25/21 Unknown History 1,000 mg tablet,extended release states they fill the er for 2 tabs 24 hr daily [phone] testosterone cypionate 100 mg/mL 100 mg IM Q7D 02/16/21 08/25/21 Unknown History intramuscular oil calcium carbonate 200 mg calcium 200 mg PO QID PRN UNKNOWN 01/23/22 01/23/22 Unknown History (500 mg) chewable tablet (Tums) glipizide 10 mg tablet, extended 20 mg PO DAILY 01/23/22 01/23/22 Unknown History release 24 hr losartan 100 mg tablet 100 mg PO DAILY 01/23/22 01/23/22 Unknown History sildenafil (pulm.hypertension) 20 100 mg PO DAILY PRN Erectile 01/23/22 01/23/22 Unknown History mg tablet Dysfunction Allergies Allergy/AdvReac Type Severity Reaction Status Date / Time atorvastatin Allergy Unknown Verified 01/23/22 14:13 lisinopril Allergy ADR-Cough Verified 01/23/22 14:13 Current Medications Generic Name Dose Route Start Last Admin Trade Name Freq PRN Reason Stop Dose Admin Sodium Chloride 1,000 mls @ 75 mls/hr 01/23/22 02:30 01/23/22 02:55 Sodium Chloride 0.9% IV 75 mls/hr .[id number] CORNELIO Administration Nitroglycerin 0.5 inch 01/23/22 05:00 01/23/22 04:07 Nitroglycerin 1 Gm/Inch Oint Pkt TOPICAL 0.5 inch Q6H CORNELIO Administration PFSH Acute PFSH: Medical History Diabetes HTN (hypertension) Nicotine dependence Family History Father , [place] Myocardial infarct Other Diabetes Social History Smoking and tobacco status: current every day smoker (only 2 cigs a day) Vitals/I&O/Wt Last Vital Signs Temp 98.2 F 01/23/22 04:00 Pulse 80 01/23/22 06:00 Resp 15 01/23/22 04:00 BP 126/80 01/23/22 04:00 Pulse Ox 97 01/23/22 04:09 O2 Del Method 01/23/22 04:09 01/22/22 01/23/2222 22:59 06:59 14:59 Intake Total 0 / 0 Output Total 0 / 0 Balance 0 / 0 Weight last 48 hrs Weight 234 lb Physical Exam Narrative: GENERAL: Obese man laying in bed in no acute distress HEENT: Extraocular movement intact. Pupils equal round reactive to light. No pallor or icterus. NECK: central trachea, No JVD, No carotid bruit. CARDIOVASCULAR SYSTEM: S1-S2 regular. No S3 or S4 present. No murmur rubs or gallops. RESPIRATORY SYSTEM: Chest clear to auscultation. No wheezes rhonchi or rubs heard. No use of accessory muscles. ABDOMEN: Soft, nontender and nondistended. Normal bowel sounds present. EXTREMITIES: No cyanosis or clubbing. [No edema]. No signs of chronic venous insufficiency. 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 No focal neurological deficits. SKIN: Normal turgor and temperature. No breakdown, rash or nail changes noted. PSYCH: Normal insight and judgment. No suicidal or homicidal ideations. Data : 01/23/22 03:29 01/23/22 03:29 A&P Assessment and plan (1) Non-ST elevated myocardial infarction (non-STEMI): Plan for left heart cath later this morning. Risks and benefits were discussed with the patients. Possible complications including risk of heart attack stroke and , coronary perforation, arrhythmia, cardiac tamponade in urgent CABG were discussed with the patient as well. Plan is to proceed for the procedure at the earliest. 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
--- NOTE | 2022-01-23 08:29 | XACV_ITS ---
Exam Room: [facility] Ht: 185 cm Wt: 106 kg BSA: 2.36 m2 Gender: Male : 1960 Any Known Allergies: No known allergies Exam Priority: Routine Procedure(s): Procedure Description: Diagnostic procedure Procedure Description: Left Heart Catheterization Procedure Description: Coronary Angiography Diagnostic Cath Status: Urgent Diagnostic Findings * Angiography shows a left coronary dominant system. * Normal calibre left main artery with no stenosis. * Medium calibre left anterior descending artery that wraps around apex. Proximal LAD with calcified severe 95% stenosis (JASON-3 flow). Distal apical LAD with 90% stenosis (JASON-3 flow). * Dominant medium calibre circumflex artery. Large obtuse marginal branch with ostial 99% severe stenosis with JASON-2 flow. * Small non dominant right coronary artery. Proximal RCA with long 90% severe stenosis, JASON-2 flow. Distal RCA with moderate disease. * Case was discussed and images were reviewed with Dr. Vaca and Dr. Marks. Conclusions 1. Angiography shows a left coronary dominant system. 2. Severe multivessel coronary artery disease. Recommendations * Return to inpatient for close monitoring and routine cath care. * Patient will be referred to outside facility for coronary artery bypass grafting. * Continue current medical management and risk factor modification. Left Ventriculography Findings: * Left Ventriculogram not performed to minimize contrast use. Pressures Phase:Rest AO : 110 / 66 ( 80 ) @ 10:41:00 AM 118 / 71 ( 85 ) @ 10:50:00 AM 119 / 69 ( 85 ) @ 10:50:00 AM LV : 128 / -14 / 5 @ 10:50:00 AM 133 / -8 / 9 @ 10:50:00 AM Hemodynamic Findings LVEDP is 5 mmHg. Valves Phase:DefaultPhase AV : 16.0 @ 10:02:14 AM AV Mean Gradient: 12.0 @ 10:02:14 AM Clinical Evaluation EBL: 5mL-10mL Procedural Details Procedure Consent Obtained. Admit Source: In Patient. Pre-Procedure Time Out. Identified patient by full name and date of as verbalized by the patient/guarantor. Does the consent match the physician's order: Yes. Accurate & Complete Informed Consent: Yes. Inpatient/Outpatient History & Physical on Chart: Yes. If H&P is completed, is and addenduem needed: No; If yes, is the addendum complete: N/A. Visualize and Verify Site with Patient/Guarantor: N/A. Relevant Radiology Images available: N/A. The risks, benefits, and alternatives of sedation and/or procedure were discussed by physician. The patient agrees to continue. Procedure started. [facility] Clinical Fraility Score: 2: Well. Pool Technician Indications: Worsening Angina. Chest Pain Symptom Assessment: Typical Angina Symptoms. Correct patient, site and procedure confirmed by cath team. Current diagnosis: NSTEMI. PERRLA. Strong, equal hand housekeeping manager bilaterally. Lungs clear x 5 lobes. IV Site on Arrival: 20 gauge in the left anticubital. IV Fluids: 0.9% NaCl at 75ml/hr. 500 mL infused prior to laborer mine. Pre Procedural Pulses: bilateral radial was 3+. Pre Procedural Pulses: bilateral dorsalis pedis was 2+. Pre Procedural Pulses: bilateral posterior tibial was 2+. Oxygen started at 2liters/min via nasal canula. right radial was prepped with chloroprep then draped in the usual sterile fashion. right groin was prepped with chloroprep then draped in the usual sterile fashion. Physician notified. Baseline sample Acquired. HR: 72 BPM. Physician arrived. Physician scrubbed in. Immediate Pre-Procedure Time Out. Correct Patient: Yes; Correct Procedure: Yes; Correct Site: Yes; Correct Patient Position: Yes; Correct Supplies: Yes; Dried Flammable Prep: Yes; Blood Products Available: N/A;. Lidocaine 1% infiltrated to the right radial. Arterial access obtained. A 5 greek TIG catheter in over wire. Multiple views taken of left coronary artery. Catheter redirected to the RCA. Multiple views taken of right coronary artery. EDP Sample taken: LV 128/-15,5; HR: 92 BPM; SpO2: 95%. Pullback taken: LV 133/-9,9; AO 118/71(85); Mean: 12mmHg, Peak to Peak: 16mmHg, SEP: 22sec/min; HR: 93 BPM; SpO2: 94%. Catheter and wire out. Flushing sheath periodically to maintain patency. Dr. Vaca arrived to review cine films. Physician scrubbed out. Post Procedure: Pulses reassessed and unchanged. PERRLA. Strong, equal hand housekeeping manager bilaterally. No VTE prophylaxis required. Post-op diagnosis: Multi-vessel CAD. Complications: None. Estimated blood loss: 5mL-10mL. Responsiveness - Normal response to verbal stimuli; alert and oriented, PERRLA. Airway - Unaffected, no intervention required; spontaneous ventilation. Circulation: W/N/L, pulses unchanged. Nausea/Vomiting: N/A. Medication's Wasted: Nitro = 49.8 mg. Medication's Wasted: Heparin = 1000 unit. Medication's Wasted: Lidocaine 1% = 2 mL. Total IV fluids: 50 mL. A TR Band was successful obtaining hemostatsis at the Right Radial artery insertion site. Procedure completed. Patient transferred [facility] bed to [facility]. Vital chart was stopped. Access Site Site: Right Radial artery Sheath Size: 6 Fr Hemostasis Method: TR Band Hemostasis Success: Successful Procedure Medications Start: 9:32 AM Stop: 9:32 AM Medication: Versed Amount: 1 mg Route: I.V. Start: 9:32 AM Stop: 9:32 AM Medication: Fentanyl Amount: 50 mcg Route: I.V. Start: 9:38 AM Stop: 9:38 AM Medication: Nitrogylcerin Amount: 200 mcg Route: I.A. Start: 9:42 AM Stop: 9:42 AM Medication: Versed Amount: 1 mg Route: I.V. Start: 9:42 AM Stop: 9:42 AM Medication: Fentanyl Amount: 50 mcg Route: I.V. Start: 9:42 AM Stop: 9:42 AM Medication: Heparin Amount: 5000 units Route: I.V. I, the attending physician, have reviewed and verified all procedure medications. Yes, all medications given per verbal order History/Risk Factors Hypertension: Yes Dyslipidemia: No Peripheral Arterial Disease (PAD): No Myocardial Infarction (DC): No Obesity: No Renal Disease: No Tobacco Use: Current/Recent(w/in 1 year) Prior Interventions PCI: No CABG: No Valve Surgery: No Report Signatures Finalized by Jayleen Oconnell MD on 01/24/2022 09:01 AM
[2022-01-23] MEDS: aspirin 81 mg EC Tablet PO (08:50)
[2022-01-23] MEDS: diphenhydrAMINE 50 mg Capsule PO (08:50)
--- NOTE | 2022-01-23 10:09 | PC.NURSE ---
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 bedside report received from TOYIN Leos, TR band in place, no hematoma or oozing present. Patient has been educated on activity restrictions and safety guidelines. VS monitored q15m
[2022-01-23] MEDS: sodium chloride 0.9% 1,000 ML 100 ML IV ×2 (10:34→21:02)
--- NOTE | 2022-01-23 10:39 | PC.PHAR ---
Addendum entered by Pamela Shin 01/23/22 14:23: PT VERIFIED MEDICATIONS-STATES HE GETS THEM FROM [facility] [phone]- PT STATES HE TAKES A TESTOSTERONE INJECTION ONCE A WEEK ON SUN [facility] STATES THEY DO NOT FILL THAT MEDICATION FOR THE PT-NOTES ARE MADE IN THE PHARMACY COMMENTS Original Note: pt not in room to do med rec @09:35-will check back
[2022-01-23 11:53] LABS: Glucose Point of Care 119 mg/dL (70-110)
--- NOTE | 2022-01-23 12:04 | PC.CHAP ---
Pastoral Care Encounter/Spiritual Assessment Type of Contact [] Declined surveyor helper rod visit [] Patient/Family/Request visit [] Outpatient visit [] Follow-up visit [] Physician referral [] Code/Alert []x Routine visit [] Staff referral [] Actively dying [x] Patient sleeping [] Family support [] [] Out of room [] Palliative care [] [] Receiving care in room [] Pre-surgical visit [] Trauma [] Long length of stay [] ICU visit [] Other: Relational/Emotional Strength [] Patient feels connected with others/family/visitors/staff [] Distress [] Loneliness/isolation [] Abandonment Spirituality of Patient [] Person of Amanda [] Attends Yazidism of their Amanda [] Believes in Prayer [] Reads Bible or Christianity materials [] There are Spiritual issues to be addressed Conciliation Court Judge Interventions [] Prayer [] Active listening [] Non-anxious presence [] Spiritual/emotional support [] Crisis/trauma care [] Spiritual counseling [] Bereavement support [] Provided bereavement packet [] Provided Bible/devotional materials [] Provided toy/stuffed animal, coloring book to patient or family member [] Provided Communion [] Anointing/Park [] Salvation [] Completed spiritual assessment [] Other: Impact on Illness or Injury [] Angry [] Fearful [] Anxious [] Often cries [] Exhaustion [] Unable to work [] Unable to attend roman catholic [] Unable to walk/stand [] Unable to read [] Unable to drive [] Unable to eat/drink [] Unable to sleep [] Unable to be with family [] Patient intubated [] Other: Summary Time spent with patient
--- NOTE | 2022-01-23 13:15 | PC.NURSE ---
TR band removed. Patient tolerated well. No hematoma present, dressing applied. Nurse will continue to monitor.
--- NOTE | 2022-01-23 13:56 | P.PN_ITS ---
Subjective Subjective: Patient was seen this morning, after his coronary angiogram, he is lying comfortably, is at bedside, still under the effect of anesthesia, he was told that he had triple-vessel CAD, need for CABG, is trying to figure out where they want to go Vitals/I&O/Wt Last Vital Signs Temp 98.2 F 01/23/22 10:03 Pulse 74 01/23/22 13:45 Resp 15 01/23/22 13:45 BP 132/84 01/23/22 13:30 Pulse Ox 95 01/23/22 13:45 O2 Del Method 01/23/22 10:03 01/22/22 01/23/22 01/23/22 22:59 06:59 14:59 Intake Total 0 / 0 1078.25 / 1078.25 Output Total 0 / 0 150 / 150 Balance 0 / 0 928.25 / 928.25 Weight last 48 hrs Weight 106.141 kg Physical Exam Const: COMMON NORMALS: no acute distress OTHER: Patient is, alert to person, but falls back asleep Resp: COMMON NORMALS: normal respiratory effort, No retractions, No use of accessory muscles and clear to auscultation bilaterally AUSCULTATION: clear to auscultation bilaterally Cardio: COMMON NORMALS: regular rate, regular rhythm, S1 normal heart sound present and S2 normal heart sound present RATE: regular rate RHYTHM: regular rhythm HEART SOUNDS: S1 normal heart sound present and S2 normal heart sound present GI: COMMON NORMALS: Normal to inspection, nondistended, normoactive bowel sounds present, non-tender and No hepatosplenomegaly present PALPATION: Yes No hepatosplenomegaly present Extremity: COMMON NORMALS: no pedal edema Psych: COMMON NORMALS: mental status grossly normal Data : 01/23/22 03:29 01/23/22 03:29 A&P Assessment and plan (1) Non-ST elevated myocardial infarction (non-STEMI): Status post left heart cath, found to have triple-vessel CAD, will require transfer for CABG (2) HTN (hypertension): (3) Stroke: (4) Diabetes: Low-dose sliding scale Plan Smoker Grade 1 Obesity Attestations Medical Necessity Statement*: Patient requires hospitalization for triple- vessel CAD, inpatient, greater than 2 midnights Coding Level of Care Code Acute Tree Tapping Laborer for g Fwd Diagnoses Non-ST elevated myocardial infarction (non-STEMI) I21.4 HTN (hypertension) I10 Stroke I63.9 Diabetes E11.9
[2022-01-23 17:06] LABS: Glucose Point of Care 131 mg/dL (70-110)
--- NOTE | 2022-01-23 18:34 | PC.NURSE ---
Nurse to notify if patient will be transferred to different facility
--- NOTE | 2022-01-23 19:00 | PC.NURSE ---
Right wrist site assessed. Dressing is dry and intact, no hematoma present. Site is soft, radial pulse is palpable and capillary refill is <3sec.
[2022-01-23 20:20] LABS: Glucose Point of Care 190 mg/dL (70-110)
[2022-01-23] MEDS: insulin lispro 100 unit/1 mL SUBCUT (21:06)
[2022-01-24] VITALS (9 sets, daily range): BP systolic 123–152; BP diastolic 64–88; PULSE 72–91; RESP 16–20; TEMP 36.7–37.2; O2SAT 95–98
[2022-01-24] MEDS: enoxaparin 100 mg/mL Syringe SUBCUT ×2 (02:20→15:23)
[2022-01-24 03:07] LABS: Basophils % 0.7 %; Eosinophils % 0.3 %; Hematocrit 39.9 % (42.0-52.0); Hemoglobin 12.9 g/dL (11.7-16.6); Lymphocytes # 2.2 10^3/uL (0.8-4.8); Lymphocytes % 36.8 %; Mean Corpuscular HGB Conc 32.3 g/dL (30.0-36.0); Mean Corpuscular Hemoglobin 28.9 pg (28.0-34.0); Mean Corpuscular Volume 89.5 fl (80-94); Mean Platelet Volume 10.5 fL (7.4-10.4); Monocytes # 0.7 10^3/uL (0.2-0.9); Monocytes % 11.5 %; Neutrophils # 3.01 10^3/uL (1.8-7.7); Neutrophils % 50.4 %; Nucleated Red Blood Cells % 0 %; Platelet Count 150 10^3/cmm (130-400); Red Blood Count 4.46 10^6/uL (4.1-5.3); Red Cell Distribution Width 12.8 % (12.1-15.1)
[2022-01-24 03:21] LABS: Estmated Average Glucose 171; Hemoglobin A1C 7.6 % (4.0-6.0)
[2022-01-24 03:42] LABS: Alanine Aminotransferase 25 U/L (0-41); Albumin Level 3.6 g/dL (3.5-5.2); Alkaline Phosphatase 64 U/L (40-130); Anion Gap 15.3 (5-19); Aspartate Amino Transferase 60 U/L (0-40); Blood Urea Nitrogen 14 mg/dL (6-20); Calcium 8.7 mg/dL (8.5-10.5); Carbon Dioxide 22 mmol/L (22-29); Chloride 103 mmol/L (98-107); Chol HDL Ratio 5.79 mg/dL (1.0-5.00); Cholesterol 168 mg/dL (0-200); Globulin 2.5 g/dL (1.3-4.6); Glomerular Filtration Rate 76.5 mL/min (90-130); Glucose 108 mg/dL (65-115); HDL Cholesterol 29 mg/dL (60-100); LDL Cholesterol Calculated 115 mg/dL (50-129); LDL HDL Ratio 3.97 RATIO (0.00-3.22); Magnesium 1.8 mg/dL (1.7-2.3); Osmolality Calculated 283 mOsm/kg (285-295); Potassium 4.3 mmol/L (3.5-5.1); Sodium 136 mmol/L (136-145); Total Bilirubin 0.4 mg/dL (0.15-1.2); Total Protein 6.1 g/dL (6.6-8.7); Triglycerides 119 mg/dL (0-150)
[2022-01-24] MEDS: sodium chloride 0.9% 1,000 ML 100 ML IV ×2 (05:36→17:30)
[2022-01-24 06:12] LABS: Glucose Point of Care 114 mg/dL (70-110)
[2022-01-24] MEDS: aspirin 325 mg EC Tablet PO (10:05)
[2022-01-24] MEDS: metoprolol succinate ER (24 HR) 25 mg Tablet 12.5 MG PO (10:05)
[2022-01-24] MEDS: atorvastatin 40 mg Tablet 80 MG PO (10:06)
[2022-01-24 11:31] LABS: Glucose Point of Care 167 mg/dL (70-110)
[2022-01-24] MEDS: insulin lispro 100 unit/1 mL SUBCUT ×3 (12:01→21:55)
--- NOTE | 2022-01-24 12:05 | PM.PN ---
Subjective Subjective: Patient underwent LHC yesterday and was found to have multivessel CAD Medications: Reviewed: Yes Vitals/I&O/Wt Last Vital Signs Temp 98.1 F 01/24/22 11:07 Pulse 72 01/24/22 11:07 Resp 18 01/24/22 11:07 BP 140/82 01/24/22 11:07 Pulse Ox 95 01/24/22 11:07 O2 Del Method 01/24/22 11:07 01/23/22 01/24/22 01/24/22 22:59 06:59 14:59 Intake Total 1240 / 2318.25 1216.667 / 3534.917 360 / 360 Balance 1240 / 2168.25 1216.667 / 3384.917 360 / 360 Weight last 48 hrs Weight 234 lb Physical Exam Narrative: GENERAL: Obese man laying in bed in no acute distress HEENT: Extraocular movement intact. Pupils equal round reactive to light. No pallor or icterus. NECK: central trachea, No JVD, No carotid bruit. CARDIOVASCULAR SYSTEM: S1-S2 regular. No S3 or S4 present. No murmur rubs or gallops. RESPIRATORY SYSTEM: Chest clear to auscultation. No wheezes rhonchi or rubs heard. No use of accessory muscles. ABDOMEN: Soft, nontender and nondistended. Normal bowel sounds present. EXTREMITIES: No cyanosis or clubbing. No edema. No signs of chronic venous insufficiency. Right wrist with no bruising or heamtoma. POTTERY KILN BUILDER: Patient is alert oriented ?3. No focal neurological deficits. SKIN: Normal turgor and temperature. No breakdown, rash or nail changes noted. PSYCH: Normal insight and judgment. No suicidal or homicidal ideations. Data : 01/24/22 02:36 01/24/22 02:36 A&P Assessment and plan (1) Non-ST elevated myocardial infarction (non-STEMI): Multivesel CAD on LHC -awaiting bed at [facility]. -continue ASA, statin, metoprolol and lovenox (2) HTN (hypertension): (3) Diabetes: (4) Stroke: Plan Smoker Obesity Hyperlipidemia PVC's on telemetry Attestations Medical Necessity Statement*: Awaiting bed at [facility]. Time Spent in Patient Care: 16 - 35 minutes Coding Level of Care Code Acute Ship Design Teacher for Chg Fwd Diagnoses Non-ST elevated myocardial infarction (non-STEMI) I21.4 HTN (hypertension) I10 Diabetes E11.9 Stroke I63.9
--- NOTE | 2022-01-24 12:49 | PC.NURSE ---
Spoke with Vishal in imaging, angiogram images pushed to [place] now.
--- NOTE | 2022-01-24 14:27 | P.PN_ITS ---
Subjective Subjective: Patient was seen this morning, no current chest pain episodes, he he is agreeable to go to [facility], spoke to [facility], he has been accepted by cardiothoracic surgery service, awaiting bed Vitals/I&O/Wt Last Vital Signs Temp 98.1 F 01/24/22 11:07 Pulse 72 01/24/22 11:07 Resp 18 01/24/22 11:07 BP 140/82 01/24/22 11:07 Pulse Ox 95 01/24/22 11:07 O2 Del Method 01/24/22 11:07 01/23/22 01/24/22 01/24/22 22:59 06:59 14:59 Intake Total 1240 / 2318.25 1216.667 / 3534.917 360 / 360 Balance 1240 / 2168.25 1216.667 / 3384.917 360 / 360 Weight last 48 hrs Weight 106.141 kg Physical Exam Const: COMMON NORMALS: no acute distress and patient oriented x3 Resp: COMMON NORMALS: normal respiratory effort, No retractions, No use of accessory muscles and clear to auscultation bilaterally AUSCULTATION: clear to auscultation bilaterally Cardio: COMMON NORMALS: regular rate, regular rhythm, S1 normal heart sound present and S2 normal heart sound present RATE: regular rate RHYTHM: regular rhythm HEART SOUNDS: S1 normal heart sound present and S2 normal heart sound present GI: COMMON NORMALS: Normal to inspection, nondistended, normoactive bowel sounds present, non-tender and no masses Extremity: COMMON NORMALS: no pedal edema Neuro: COMMON NORMALS: patient oriented x3 Psych: COMMON NORMALS: mental status grossly normal Data : 01/24/22 02:36 01/24/22 02:36 A&P Assessment and plan (1) Non-ST elevated myocardial infarction (non-STEMI): Multivesel CAD on [facility] -awaiting bed at [facility]. -continue ASA, statin, metoprolol and lovenox (2) HTN (hypertension): (3) Diabetes: (4) Stroke: (5) Triple vessel coronary artery disease: Plan Smoker Obesity Hyperlipidemia PVC's on telemetry Attestations Medical Necessity Statement*: Patient requires hospitalization for triple- vessel CAD, awaiting transfer Coding Level of Care Code Acute Serging Machine Operator Automatic for [facility] Fwd Diagnoses Non-ST elevated myocardial infarction (non-STEMI) I21.4 HTN (hypertension) I10 Diabetes E11.9 Stroke I63.9 Triple vessel coronary artery disease I25.10
--- NOTE | 2022-01-24 14:29 | P.TS_ITS ---
Transfer Summary Providers Date of Admission: 01/23/22 02:21 Date of Discharge/Transfer: 01/24/22 Attending Provider at Admission: Joseph Geronimo MD Attending Provider at Transfer: Reggie Vallejo MD Transfer Plans: Anticipated date of transfer: 01/24/22 . Diagnoses at Discharge Discharge Diagnosis (1) Non-ST elevated myocardial infarction (non-STEMI): Status: Acute (2) HTN (hypertension): Status: Acute (3) Diabetes: Status: Acute (4) Stroke: Status: Acute (5) Triple vessel coronary artery disease: Status: Acute Reason for Visit Reason for Visit CP; nausea Hospital Course Hospital Course This is a 61-year-old male with past medical history of type 2 diabetes mellitus, A1c 7.6, hypertension, history of CVA, smoking, who presents to [facility] for chest pain Patient was admitted to [facility] for chest pain, had elevated troponins, NSTEMI, underwent cardiac catheterization found to have triple-vessel CAD, patient will require CABG. Has been accepted by [facility] cardiothoracic surgery, awaiting bed for transfer. Diagnostic Findings ? * Angiography shows a left coronary dominant system. ? * Normal calibre left main artery with no stenosis. ? * Medium calibre left anterior descending artery that wraps around apex. Proximal LAD with calcified severe 95% stenosis (JASON-3 flow). Distal apical LAD with 90% stenosis (JASON-3 flow). ? * Dominant medium calibre circumflex artery. Large obtuse marginal branch with ostial 99% severe stenosis with JASON-2 flow. ? * Small non dominant right coronary artery. Proximal RCA with long 90% severe stenosis, JASON-2 flow. Distal RCA with moderate disease. cardiac echo ?1. Normal left ventricular size, systolic function and wall ?thickness. Left ventricular ejection fraction is estimated at 60 ?%.? Possible mild hypokinesis of inferoseptal wall. Normal ?diastolic function. ?2. Normal right ventricular size and systolic function. ?3. Trace to mild tricuspid valve regurgitation. ?4. Normal pulmonary artery pressure. ?5. When compared to previous study dated 02/16/2021, there is ?possible hypokinesis of inferoseptal wall now. Physical Exam Const: COMMON NORMALS: no acute distress and patient oriented x3 Resp: COMMON NORMALS: normal respiratory effort, No retractions, No use of accessory muscles and clear to auscultation bilaterally AUSCULTATION: clear to auscultation bilaterally Cardio: COMMON NORMALS: regular rate, regular rhythm, S1 normal heart sound present and S2 normal heart sound present RATE: regular rate RHYTHM: regular rhythm HEART SOUNDS: S1 normal heart sound present and S2 normal heart sound present GI: COMMON NORMALS: Normal to inspection, nondistended, normoactive bowel sounds present, non-tender, No hepatosplenomegaly present and no masses PALPATION: Yes No hepatosplenomegaly present Extremity: COMMON NORMALS: capillary refill normal, no clubbing, cyanosis or edema and no pedal edema Neuro: COMMON NORMALS: patient oriented x3 Psych: COMMON NORMALS: mental status grossly normal TS Data Studies Completed and Pending Pending at discharge Category Date Time Status Complete Blood Count w/Auto AM LABS Lab 01/25/22 04:00 Ordered Complete Blood Count w/Auto AM LABS Lab 01/26/22 04:00 Ordered Comprehensive Metabolic Panel AM LABS Lab 01/25/22 04:00 Ordered Comprehensive Metabolic Panel AM LABS Lab 01/26/22 04:00 Ordered Labs from last 24 hours 01/24/22 01/24/22 01/24/22 11:25 05:59 02:36 WBC RBC Hgb Hct MCV MCH MCHC RDW Plt Count MPV Neut % (Auto) Lymph % (Auto) Kane % (Auto) Eos % (Auto) Baso % (Auto) Neut # (Auto) Lymph # (Auto) Kane # (Auto) Eos # (Auto) Baso # (Auto) Nucleated RBC % (auto) Nucleated RBCs # Sodium Potassium Chloride Carbon Dioxide Anion Gap BUN Creatinine GFR Calculation Glucose POC Glucose 167 H 114 H Estimat Average Glucose 171 Hemoglobin A1c 7.6 H Calculated Osmolality Calcium Magnesium Total Bilirubin AST ALT Alkaline Phosphatase Total Protein Albumin Globulin Triglycerides Cholesterol LDL Cholesterol, Calc HDL Cholesterol LDL/HDL Ratio Cholesterol/HDL Ratio TSH 01/24/22 01/24/22 01/23/22 02:36 02:36 20:07 WBC 6.0 RBC 4.46 Hgb 12.9 Hct 39.9 L MCV 89.5 MCH 28.9 MCHC 32.3 RDW 12.8 Plt Count 150 MPV 10.5 H Neut % (Auto) 50.4 Lymph % (Auto) 36.8 Kane % (Auto) 11.5 Eos % (Auto) 0.3 Baso % (Auto) 0.7 Neut # (Auto) 3.01 Lymph # (Auto) 2.2 Kane # (Auto) 0.7 Eos # (Auto) 0.0 Baso # (Auto) 0.0 Nucleated RBC % (auto) 0 Nucleated RBCs # 0.0 Sodium 136 Potassium 4.3 Chloride 103 Carbon Dioxide 22 Anion Gap 15.3 BUN 14 Creatinine 1.0 GFR Calculation 76.5 L Glucose 108 POC Glucose 190 H Estimat Average Glucose Hemoglobin A1c Calculated Osmolality 283 L Calcium 8.7 Magnesium 1.8 Total Bilirubin 0.4 AST 60 H ALT 25 Alkaline Phosphatase 64 Total Protein 6.1 L Albumin 3.6 Globulin 2.5 Triglycerides 119 Cholesterol 168 LDL Cholesterol, Calc 115 HDL Cholesterol 29 L LDL/HDL Ratio 3.97 H Cholesterol/HDL Ratio 5.79 H TSH 0.80 01/23/22 16:49 WBC RBC Hgb Hct MCV MCH MCHC RDW Plt Count MPV Neut % (Auto) Lymph % (Auto) Kane % (Auto) Eos % (Auto) Baso % (Auto) Neut # (Auto) Lymph # (Auto) Kane # (Auto) Eos # (Auto) Baso # (Auto) Nucleated RBC % (auto) Nucleated RBCs # Sodium Potassium Chloride Carbon Dioxide Anion Gap BUN Creatinine GFR Calculation Glucose POC Glucose 131 H Estimat Average Glucose Hemoglobin A1c Calculated Osmolality Calcium Magnesium Total Bilirubin AST ALT Alkaline Phosphatase Total Protein Albumin Globulin Triglycerides Cholesterol LDL Cholesterol, Calc HDL Cholesterol LDL/HDL Ratio Cholesterol/HDL Ratio TSH Completed Studies During Hospitalization Category Date Time Status CT angio chest PE protcl [id number] Urgent Cat Scan 01/23/22 00:28 Completed FARM MANAGER request for service Routine Exams 01/23/22 08:29 Completed XR chest 1V portable [id number] Stat Exams 01/22/22 23:22 Completed CV. echo complete* [id number] Routine Ultrasound 01/23/22 05:03 Completed Laboratory Last Values WBC 6.0 10^3/uL (4.0-10.0) 01/24/22 02:36 RBC 4.46 10^6/uL (4.1-5.3) 01/24/22 02:36 Hgb 12.9 g/dL (11.7-16.6) 01/24/22 02:36 Hct 39.9 % (42.0-52.0) L 01/24/22 02:36 MCV 89.5 fl (80-94) 01/24/22 02:36 MCH 28.9 pg (28.0-34.0) 01/24/22 02:36 MCHC 32.3 g/dL (30.0-36.0) 01/24/22 02:36 RDW 12.8 % (12.1-15.1) 01/24/22 02:36 Plt Count 150 10^3/cmm (130-400) 01/24/22 02:36 MPV 10.5 fL (7.4-10.4) H 01/24/22 02:36 Neut % (Auto) 50.4 % 01/24/22 02:36 Lymph % (Auto) 36.8 % 01/24/22 02:36 Kane % (Auto) 11.5 % 01/24/22 02:36 Eos % (Auto) 0.3 % 01/24/22 02:36 Baso % (Auto) 0.7 % 01/24/22 02:36 Neut # (Auto) 3.01 10^3/uL (1.8-7.7) 01/24/22 02:36 Lymph # (Auto) 2.2 10^3/uL (0.8-4.8) 01/24/22 02:36 Kane # (Auto) 0.7 10^3/uL (0.2-0.9) 01/24/22 02:36 Eos # (Auto) 0.0 10^3/uL (0.0-0.8) 01/24/22 02:36 Baso # (Auto) 0.0 10^3/uL (0.0-0.1) 01/24/22 02:36 Nucleated RBC % (auto) 0 % 01/24/22 02:36 Nucleated RBCs # 0.0 /100WBC 01/24/22 02:36 PT 13.50 SECONDS (12.1-14.9) 01/22/22 23:49 INR 1.00 (0.8-1.2) 01/22/22 23:49 APTT 29.8 SECONDS (23.9-36.7) 01/22/22 23:49 D-Dimer 1.72 ug/mIFEU (0-0.59) H 01/22/22 23:49 Sodium 136 mmol/L (136-145) 01/24/22 02:36 Potassium 4.3 mmol/L (3.5-5.1) 01/24/22 02:36 Chloride 103 mmol/L (98-107) 01/24/22 02:36 Carbon Dioxide 22 mmol/L (22-29) 01/24/22 02:36 Anion Gap 15.3 (5-19) 01/24/22 02:36 BUN 14 mg/dL (6-20) 01/24/22 02:36 Creatinine 1.0 mg/dL (0.7-1.2) 01/24/22 02:36 GFR Calculation 76.5 mL/min (90-130) L 01/24/22 02:36 Glucose 108 mg/dL (65-115) 01/24/22 02:36 POC Glucose 167 mg/dL (70-110) H 01/24/22 11:25 Estimat Average Glucose 171 01/24/22 02:36 Hemoglobin A1c 7.6 % (4.0-6.0) H 01/24/22 02:36 Calculated Osmolality 283 mOsm/kg (285-295) L 01/24/22 02:36 Calcium 8.7 mg/dL (8.5-10.5) 01/24/22 02:36 Magnesium 1.8 mg/dL (1.7-2.3) 01/24/22 02:36 Total Bilirubin 0.4 mg/dL (0.15-1.2) 01/24/22 02:36 AST 60 U/L (0-40) H 01/24/22 02:36 ALT 25 U/L (0-41) 01/24/22 02:36 Alkaline Phosphatase 64 U/L (40-130) 01/24/22 02:36 Troponin T Baseline 9 ng/L (0-15) 01/22/22 23:49 Troponin T 120 Minute 42.61 ng/L (0-15) H 01/23/22 01:35 Delta Troponin T 33.61 ABS# (0-10) H* 01/23/22 01:35 Troponin T Hi Sens 6Hr 105.3 ng/L (0-15) H 01/23/22 03:29 Troponin T Hi Sens 6Hr Delta 96.3 ng/L (0-12) H* 01/23/22 03:29 NT-Pro-B Natriuret Pep 89 pg/mL (0-125) 01/22/22 23:49 Total Protein 6.1 g/dL (6.6-8.7) L 01/24/22 02:36 Albumin 3.6 g/dL (3.5-5.2) 01/24/22 02:36 Globulin 2.5 g/dL (1.3-4.6) 01/24/22 02:36 Triglycerides 119 mg/dL (0-150) 01/24/22 02:36 Cholesterol 168 mg/dL (0-200) 01/24/22 02:36 LDL Cholesterol, Calc 115 mg/dL (50-129) 01/24/22 02:36 HDL Cholesterol 29 mg/dL (60-100) L 01/24/22 02:36 LDL/HDL Ratio 3.97 RATIO (0.00-3.22) H 01/24/22 02:36 Cholesterol/HDL Ratio 5.79 mg/dL (1.0-5.00) H 01/24/22 02:36 TSH 0.80 uIU/mL (0.27-4.20) 01/24/22 02:36 SARS-CoV-2 Ag (Rapid) Negative (Negative) 01/23/22 00:32 Radiology Impressions Chest X-Ray 01/22/22 23:22 IMPRESSION: Subtle haziness in the left lower hemithorax may represent atelectasis although a left basilar pneumonitis can't be entirely excluded. Chest CTA 01/23/22 00:28 IMPRESSION: 1. There is no evidence for pulmonary emboli. 2. There are no acute chest findings. Recent Clincial Data Last Vital Signs Temp 98.1 F 01/24/22 11:07 Pulse 72 01/24/22 11:07 Resp 18 01/24/22 11:07 BP 140/82 01/24/22 11:07 Pulse Ox 95 01/24/22 11:07 O2 Del Method 01/24/22 11:07 Vital Signs Temp Pulse Resp BP Pulse Ox O2 Del Method O2 Del Method 01/24/22 11:07 98.1 F 72 18 140/82 95 Room Air 01/24/22 10:36 83 98 Room Air 01/24/22 08:00 98.1 F 91 20 H 134/77 96 Room Air 01/24/22 06:00 86 01/24/22 04:00 98.9 F 80 16 123/72 97 Intake & Output/Weight 01/22/22 01/23/22 01/24/22 01/25/22 06:59 06:59 06:59 06:59 Intake Total 0 / 0 3534.917 / 3534.917 360 / 360 Output Total 0 / 0 150 / 150 Balance 0 / 0 3384.917 / 3384.917 360 / 360 Weight 106.141 kg Vitals Last Vital Signs Temp 98.1 F 01/24/22 11:07 Pulse 72 01/24/22 11:07 Resp 18 01/24/22 11:07 BP 140/82 01/24/22 11:07 Pulse Ox 95 01/24/22 11:07 O2 Del Method 01/24/22 11:07 TS Medications Medications Acetaminophen (Acetaminophen 325 Mg Tablet) 650 mg PO Q6H PRN PRN Reason: Mild/Mod Pain Or Temp >/= 101 Al Hydrox/Mg Hydrox/Simethicone (Nokd-Ady-Smajlleza-Gerhard 30 Ml Udc) 30 ml PO Q15M PRN PRN Reason: INDIGESTION Aspirin (Aspirin 325 Mg Ec Tablet) 325 mg PO DAILY [facility] Last Admin: 01/24/22 10:05 Dose: 325 mg Atorvastatin Calcium (Atorvastatin 40 Mg Tablet) 80 mg PO DAILY [facility] Last Admin: 01/24/22 10:06 Dose: 80 mg Atropine Sulfate (Atropine 1 Mg/Ml Sdv 1 Ml) 0.5 mg IVP PRN PRN PRN Reason: Symptomatic bradycardia Bisacodyl (Bisacodyl 5 Mg Tablet) 10 mg PO DAILY PRN; Protocol PRN Reason: Constipation (see protocol) Dextrose (Dextrose 50% Syringe 50 Ml) 25 ml IVP ONCE PRN; Protocol PRN Reason: hypoglycemia protocol Dextrose (Dextrose 50% Syringe 50 Ml) 50 ml IVP PRN PRN; Protocol PRN Reason: hypoglycemia protocol Enoxaparin Sodium (Enoxaparin 100 Mg/Ml Syringe) 100 mg SUBCUT Q12H [facility] Last Admin: 01/24/22 02:20 Dose: 100 mg Fentanyl (Fentanyl 50 Mcg/Ml Inj 2ml) 50 mcg IVP PRN PRN PRN Reason: Prior to sheath removal Glucagon (Glucagon 1 Mg/Ml Inj 1 Ml) 1 mg IM ONCE PRN; Protocol PRN Reason: Adult Acute Hypoglycemia Prot. Dextrose (D5w) 500 mls @ 100 mls/hr IV ONCE PRN; Protocol PRN Reason: Adult Acute Hypoglycemia Prot Sodium Chloride (Sodium Chloride 0.9%) 1,000 mls @ 100 mls/hr IV .Q10H [facility] Last Admin: 01/24/22 05:36 Dose: 100 mls/hr Insulin Human Lispro (Insulin Lispro 100 Unit/1 Ml) 0 unit SUBCUT WM&BEDTIME [facility]; Protocol Last Admin: 01/24/22 12:01 Dose: 1 unit Magnesium Hydroxide (Magnesium Hydroxide 30 Ml Udc) 30 ml PO DAILY PRN PRN Reason: CONSTIPATION Metoprolol Tartrate (Metoprolol Tartrate 25 Mg Tablet) 25 mg PO BID@0900,2100 [facility] Morphine Sulfate (Morphine 4 Mg/Ml Sdv 1 Ml) 2 mg IVP Q4H PRN PRN Reason: SEVERE PAIN Naloxone HCl (Naloxone 0.4 Mg/Ml Sdv) 0.1 mg IVP Q2M PRN PRN Reason: OPIATERV Naloxone HCl (Naloxone 0.4 Mg/Ml Sdv) 0.1 mg IVP Q2M PRN PRN Reason: RESPIRATORY RATE < 8/MIN Nitroglycerin (Nitroglycerin 0.4 Mg Sublingual Tablet) 0.4 mg SUBLINGUAL Q5M PRN PRN Reason: CHEST PAIN Nitroglycerin (Nitroglycerin 0.4 Mg Sublingual Tablet) 0.4 mg SUBLINGUAL Q5M PRN PRN Reason: CHEST PAIN Ondansetron HCl (Ondansetron 2 Mg/Ml Sdv 2 Ml) 4 mg IVP Q8H PRN PRN Reason: vomiting, or N/V if npo Temazepam (Temazepam 15 Mg Capsule) 15 mg PO BEDTIME PRN PRN Reason: INSOMNIA Discontinued Medications Aspirin (Aspirin 81 Mg Chew Tablet) 324 mg PO ONCE ONE Stop: 01/22/22 23:23 Last Admin: 01/22/22 23:44 Dose: 324 mg Aspirin (Aspirin 81 Mg Ec Tablet) 81 mg PO DAILY [facility] Last Admin: 01/23/22 08:50 Dose: 81 mg Diphenhydramine HCl (Diphenhydramine 50 Mg Capsule) 50 mg PO ONCE ONE Stop: 01/23/22 08:30 Last Admin: 01/23/22 08:50 Dose: 50 mg Enoxaparin Sodium (Enoxaparin 100 Mg/Ml Syringe) 100 mg SUBCUT ONCE ONE Stop: 01/23/22 02:15 Last Admin: 01/23/22 02:25 Dose: 100 mg Fentanyl (Fentanyl 50 Mcg/Ml Inj 2ml) Confirm Administered Dose 100 mcg .ROUTE .STK-MED ONE Stop: 01/23/22 09:15 Heparin Sodium (Porcine) (Heparin 5,000 Unit/Ml Inj 1 Ml) Confirm Administered Dose 10,000 unit .ROUTE .STK-MED ONE Stop: 01/23/22 09:15 Sodium Chloride (Sodium Chloride 0.9%) 1,000 mls @ 75 mls/hr IV .[id number] [facility] Last Infusion: 01/23/22 11:28 Dose: Infused Sodium Chloride (Sodium Chloride 0.9%) 1,000 mls @ 50 mls/hr IV .Q20H ONE Stop: 01/24/22 04:28 Last Admin: 01/23/22 08:50 Dose: Not Given Lidocaine HCl (Xylocaine) Confirm Administered Dose 2 mls @ as directed .ROUTE .STK-MED ONE Stop: 01/23/22 09:15 Iohexol (Iohexol 350 Mg/Ml 100 Ml Btl) 0 ml IV ONCE ONE Stop: 01/23/22 00:47 Last Admin: 01/23/22 00:46 Dose: 95 ml Metoprolol Succinate (Metoprolol Succinate Er (24 Hr) 25 Mg Tablet) 12.5 mg PO DAILY [facility] Last Admin: 01/24/22 10:05 Dose: 12.5 mg Midazolam HCl (Midazolam 1 Mg/Ml Inj 2 Ml) Confirm Administered Dose 2 mg .ROUTE .STK-MED ONE Stop: 01/23/22 09:15 Morphine Sulfate (Morphine 4 Mg/Ml Sdv 1 Ml) 4 mg IVP ONCE ONE Stop: 01/22/22 23:23 Last Admin: 01/22/22 23:45 Dose: 4 mg Morphine Sulfate (Morphine 4 Mg/Ml Sdv 1 Ml) 4 mg IVP ONCE ONE Stop: 01/23/22 00:43 Last Admin: 01/23/22 00:58 Dose: 4 mg Nitroglycerin (Nitroglycerin 1 Gm/Inch Oint Pkt) 0.5 inch TOPICAL Q6H [facility] Last Admin: 01/23/22 18:17 Dose: 0.5 inch Nitroglycerin (Nitroglycerin 5 Mg/Ml Sdv 10 Ml) Confirm Administered Dose 50 mg .ROUTE .STK-MED ONE Stop: 01/23/22 09:15 Ondansetron HCl (Ondansetron 2 Mg/Ml Sdv 2 Ml) 4 mg IVP ONCE ONE Stop: 01/22/22 23:23 Last Admin: 01/22/22 23:47 Dose: 4 mg Allergies atorvastatin Allergy (Verified 01/23/22 14:13) Unknown lisinopril Allergy (Verified 01/23/22 14:13) ADR-Cough Home Medications amlodipine 10 mg tablet 10 mg PO BEDTIME 02/15/21 [History Confirmed 01/23/22] aspirin 81 mg tablet,delayed release 81 mg PO DAILY 30 days #30 tabs 02/16/21 [Rx Confirmed 01/23/22] linagliptin 2.5 mg-metformin ER 1,000 mg tablet,extended release 24 hr 2 tab PO DAILY 02/16/21 [History Confirmed 01/23/22] testosterone cypionate 100 mg/mL intramuscular oil 100 mg IM Q7D 02/16/21 [History Confirmed 01/23/22] calcium carbonate 200 mg calcium (500 mg) chewable tablet (Tums) 200 mg PO QID PRN UNKNOWN 01/23/22 [History Confirmed 01/23/22] glipizide 10 mg tablet, extended release 24 hr 20 mg PO DAILY 01/23/22 [History Confirmed 01/23/22] losartan 100 mg tablet 100 mg PO DAILY 01/23/22 [History Confirmed 01/23/22] sildenafil (pulm.hypertension) 20 mg tablet 100 mg PO DAILY PRN Erectile Dysfunction 01/23/22 [History Confirmed 01/23/22] Discharge Plan Discharge Condition: Stable Prescriptions: No Action amlodipine 10 mg tablet 10 mg PO BEDTIME Hold Instructions: see neurologist before resuming testosterone cypionate 100 mg/mL Oil 100 mg IM Q7D Hold Instructions: see neurologist before resuming Rx Instructions: ON SUNDAY linagliptin-metformin 2.5-1,000 mg Tablet, Ir - Er, Biphasic 24hr 2 tab PO DAILY aspirin 81 mg Tablet,Delayed Release (Dr/Ec) 81 mg PO DAILY 30 Days Qty: 30 1RF glipizide 10 mg Tablet Extended Release 24hr 20 mg PO DAILY Tums 200 mg calcium (500 mg) Tablet,Chewable 200 mg PO QID PRN (Reason: UNKNOWN) losartan 100 mg Tablet 100 mg PO DAILY sildenafil (pulm.hypertension) 20 mg tablet 100 mg PO DAILY PRN (Reason: Erectile Dysfunction) Discharge Orders: Transfer Out of Facility (Order); Ordered 01/24/22 Ordered By: Reggie Vallejo Patient Instructions: Opioid Safety Transfer Attestations Time Spent in Transfer Care: less than 30 min Quality Metrics Clinical Quality Measures [ No reported AMI, CVA or VTE this stay] Coding Level of Care Code Acute Cash Reconciliation Specialist for Chg Fwd Diagnoses Non-ST elevated myocardial infarction (non-STEMI) I21.4 HTN (hypertension) I10 Diabetes E11.9 Stroke I63.9 Triple vessel coronary artery disease I25.10
[2022-01-24 16:11] LABS: Glucose Point of Care 199 mg/dL (70-110)
--- NOTE | 2022-01-24 17:58 | PC.NURSE ---
Patient was asking to go outside. This nurse educated patient that he must stay on the floor while admitted. Patient verbalized understanding, reinforcement needed.
[2022-01-24 21:37] LABS: Glucose Point of Care 158 mg/dL (70-110)
[2022-01-24] MEDS: metoprolol tartrate 25 mg Tablet PO (21:55)
[2022-01-25] VITALS (7 sets, daily range): BP systolic 125–152; BP diastolic 70–84; PULSE 64–83; RESP 16–18; TEMP 36.4–36.8; O2SAT 96–98
[2022-01-25] MEDS: enoxaparin 100 mg/mL Syringe SUBCUT (02:28)
[2022-01-25] MEDS: sodium chloride 0.9% 1,000 ML 100 ML IV ×2 (02:29→12:05)
[2022-01-25 04:37] LABS: Basophils % 0.8 %; Eosinophils % 0.6 %; Hemoglobin 13.8 g/dL (11.7-16.6); Lymphocytes # 2.6 10^3/uL (0.8-4.8); Lymphocytes % 49.5 %; Mean Corpuscular HGB Conc 32.1 g/dL (30.0-36.0); Mean Corpuscular Hemoglobin 28.8 pg (28.0-34.0); Mean Corpuscular Volume 89.8 fl (80-94); Mean Platelet Volume 10.4 fL (7.4-10.4); Monocytes # 0.7 10^3/uL (0.2-0.9); Monocytes % 13.6 %; Neutrophils # 1.88 10^3/uL (1.8-7.7); Neutrophils % 35.3 %; Nucleated Red Blood Cells % 0 %; Platelet Count 152 10^3/cmm (130-400); Red Blood Count 4.79 10^6/uL (4.1-5.3); Red Cell Distribution Width 12.5 % (12.1-15.1); White Blood Count 5.3 10^3/uL (4.0-10.0)
[2022-01-25 05:00] LABS: Alanine Aminotransferase 21 U/L (0-41); Albumin Level 3.7 g/dL (3.5-5.2); Alkaline Phosphatase 66 U/L (40-130); Anion Gap 12.6 (5-19); Aspartate Amino Transferase 29 U/L (0-40); Blood Urea Nitrogen 13 mg/dL (6-20); Calcium 8.8 mg/dL (8.5-10.5); Carbon Dioxide 26 mmol/L (22-29); Chloride 102 mmol/L (98-107); Globulin 2.9 g/dL (1.3-4.6); Glomerular Filtration Rate 68.5 mL/min (90-130); Glucose 132 mg/dL (65-115); Osmolality Calculated 284 mOsm/kg (285-295); Potassium 4.6 mmol/L (3.5-5.1); Sodium 136 mmol/L (136-145); Total Bilirubin 0.4 mg/dL (0.15-1.2); Total Protein 6.6 g/dL (6.6-8.7)
[2022-01-25 06:23] LABS: Glucose Point of Care 141 mg/dL (70-110)
[2022-01-25] MEDS: aspirin 325 mg EC Tablet PO (08:26)
[2022-01-25] MEDS: atorvastatin 40 mg Tablet 80 MG PO (08:26)
[2022-01-25] MEDS: insulin lispro 100 unit/1 mL SUBCUT ×2 (08:27→12:04)
[2022-01-25] MEDS: metoprolol tartrate 25 mg Tablet PO (08:27)
[2022-01-25 11:48] LABS: Glucose Point of Care 187 mg/dL (70-110)
--- NOTE | 2022-01-25 12:51 | PM.PN ---
Subjective Subjective: Patient was seen this morning, he is a bit frustrated about waiting for a bed at [facility], no recurrent chest pain, I called [facility] at 12:50 PM, they told me they have a bed for him now, they should be calling for a bed assignment in the next hour or so hopefully he can be transferred today Vitals/I&O/Wt Last Vital Signs Temp 98 F 01/25/22 12:00 Pulse 64 01/25/22 12:00 Resp 18 01/25/22 12:00 BP 152/84 01/25/22 12:00 Pulse Ox 97 01/25/22 12:00 O2 Del Method 01/25/22 08:00 01/24/22 01/25/22 01/25/22 22:59 06:59 14:59 Intake Total 1240 / 1600 898.333 / 2498.333 1680 / 1680 Balance 1240 / 1600 898.333 / 2498.333 1680 / 1680 Physical Exam Const: COMMON NORMALS: no acute distress and patient oriented x3 Resp: COMMON NORMALS: normal respiratory effort, No retractions, No use of accessory muscles and clear to auscultation bilaterally AUSCULTATION: clear to auscultation bilaterally Cardio: COMMON NORMALS: regular rate, regular rhythm, S1 normal heart sound present and S2 normal heart sound present RATE: regular rate RHYTHM: regular rhythm HEART SOUNDS: S1 normal heart sound present and S2 normal heart sound present GI: COMMON NORMALS: Normal to inspection, nondistended, normoactive bowel sounds present and non-tender Extremity: COMMON NORMALS: no pedal edema Neuro: COMMON NORMALS: patient oriented x3 Psych: COMMON NORMALS: mental status grossly normal Data : 01/25/22 04:18 01/25/22 04:18 A&P Assessment and plan (1) Non-ST elevated myocardial infarction (non-STEMI): Multivesel CAD on [facility] -awaiting bed at [facility]. -continue ASA, statin, metoprolol and lovenox (2) HTN (hypertension): (3) Diabetes: (4) Stroke: (5) Triple vessel coronary artery disease: Plan Smoker Obesity Hyperlipidemia PVC's on telemetry Attestations Medical Necessity Statement*: Patient will be transferred to [facility] hopefully today for CABG Coding Level of Care Code Acute Construction Safety Manager for g Fwd Diagnoses Non-ST elevated myocardial infarction (non-STEMI) I21.4 HTN (hypertension) I10 Diabetes E11.9 Stroke I63.9 Triple vessel coronary artery disease I25.10
== END 2022-01-25 15:30 | disposition short-term general hospital (02) | DRG 282 ==
LOC: ER 01-23 02:11 → MEDSURG 01-23 07:55
PROVIDERS: Internal Medicine Cardiovascular Disease; Admitting Provider Internal Medicine; Emergency Provider Emergency Medicine; Visit Provider Family Medicine
DX: I21.4 Non-ST elevation (NSTEMI) myocardial infarction (principal); I25.10 Atherosclerotic heart disease of native coronary artery without angina pectoris; I10 Essential (primary) hypertension; E11.9 Type 2 diabetes mellitus without complications; Z86.73 Personal history of transient ischemic attack (TIA), and cerebral infarction without residual deficits; F17.210 Nicotine dependence, cigarettes, uncomplicated; E66.9 Obesity, unspecified; Z68.30 Body mass index [BMI] 30.0-30.9, adult; Z79.82 Long term (current) use of aspirin; Z79.84 Long term (current) use of oral hypoglycemic drugs
CPT/HCPCS: 36415; 36416; 71045; 71275; 80053; 80061; 82962; 83036; 83735; 83880; 84443; 84484; 85025; 85378; 85610; 85730; 87426; 93005; 93306; 93458; 96372; 96374; 96375; 96376; 99152; 99285; C1769; C1887; C1894; J1644; J1650; J1815; J2250; J2270; J2405; J3010; J3490; J7030; Q0163; Q9967

== ENCOUNTER 2022-02-21 09:52 | Outpatient (RCR) | payer OTHER, SELFPAY | END 2022-03-22 23:59 | disposition home or self-care (01) | LOC: CR 09:52 | PROVIDERS: Referring Provider Thoracic Surgery (Cardiothoracic Vascular Surgery); Visit Provider Thoracic Surgery (Cardiothoracic Vascular Surgery) | DX: Z95.1 Presence of aortocoronary bypass graft (principal) | CPT/HCPCS: 93798 ==

== ENCOUNTER 2022-03-23 10:27 | Outpatient (RCR) | payer OTHER, SELFPAY | END 2022-04-22 23:59 | disposition home or self-care (01) | LOC: CR 10:27 | PROVIDERS: PCP Internal Medicine Cardiovascular Disease; Referring Provider Thoracic Surgery (Cardiothoracic Vascular Surgery); Visit Provider Thoracic Surgery (Cardiothoracic Vascular Surgery) | DX: Z95.1 Presence of aortocoronary bypass graft (principal) | CPT/HCPCS: 93798 ==